=== PATIENT | male | born 1960 | race Caucasian/White ===

== ENCOUNTER 2019-09-23 07:21 | Outpatient (RCR) | payer OTHER, SELFPAY ==
--- NOTE | 2019-06-27 08:37 | P.PNWOUND_ITS ---
Wound Care Note Date/Time: 06/27/19 08:37 Wound approximation: No Wound width: 1.1cm Wound length: 1.4cm Wound depth: 0.3cm Drainage: scant serousanguinous Surrounding tissue appearance: mild erythema, mild swelling Tunneling: none Percentage granulation tissue: 75% new granulation tissue Treatment/Procedures: Debridement performed under sterile conditions with #15 blade knife, tolerated well. Dressings: Begin daily dressing changes with Santyl, Endoform and Mepilex foam. Cover dry. 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 Ulcer now with red/pink wound bed and tendon exposure. Debridement performed under sterile conditions with #15 blade knife, tolerated well. Surrounding tissue with mild erythema. No purulence. No signs of active infection. Recommended beginning daily dressing changes with Santyl, endoform, mepilex foam and cover dry. Follow up in 2 weeks for reassessment. Continue post op shoe with WBAT. Debridement/Burn/Wound Pre Procedure Consent was obtained, Procedures/risks were explained, Questions were answered, Correct patient identified and Correct side and site confirmed Episode Return Visit Area was prepped and draped using sterile technique?: Yes Ulcer/Wound Debridement, skin, first 20 sq cm or less: Yes Right Wound Location: little toe (lateral 5th ray ) Dressing Applied antibiotic ointment (silver gel ) Post Procedure Patient tolerated the procedure well?: Tolerated procedure well
--- NOTE | 2019-07-25 09:01 | WPDWOUNDNOTE ---
Wound Care Note Date/Time: 07/25/19 09:01 RIGHT 5th lateral DFU Assessment and Plan Assessment and plan (1) Diabetic foot ulcers: Onset Date: ~06/09/19 Qualifiers: Diabetic foot ulcer location: toe Diabetes mellitus type: type 2 Laterality: right Non-pressure ulcer stage: with fat layer exposed Qualified Code(s): E11.621 - Type 2 diabetes mellitus with foot ulcer; L97.512 - Non-pressure chronic ulcer of other part of right foot with fat layer exposed Code(s): E11.621 - Type 2 diabetes mellitus with foot ulcer; L97.509 - Non-pressure chronic ulcer of other part of unspecified foot with unspecified severity Status: Deleted Assessment and Plan: [facility] wound clinic evaluation for right 5th ray dorsal DFU. Ulcer with 100% red/pink wound bed. No purulence. No malodor. Surroudnign tissue without signs of active infection. Continue daily dressing changes with silver gel, endoform, mepilex foam and cover dry. Follow up in 2 weeks for reassessment. Continue post op shoe with WBAT. Exam Const Constitutional General: cooperative Nutritional Appearance: average body habitus Orientation/consciousness: oriented x3 Constitutional Limitations: no limitations HENMT Head: normal to inspection Ears: hearing grossly normal bilaterally General nose exam: external nose normal Face and sinus: normal facial exam Mouth: moist mucous membranes Teeth and gingiva: dentition normal Eyes General: appearance normal, both eyes and all related structures Pupils: Yes PERRL EOM: EOM intact bilaterally Neck Neck: Yes normal visual inspection Chest Chest palpation & inspection: normal inspection of the chest Resp Effort & Inspection: normal respiratory effort and able to speak in complete sentences Cardio Jugular venous distension: no JVD Neuro Cranial nerves: Yes PERRL Extrem Other: Ulcer on the lateral aspect of the RIGHT 5th ray measures 0.8x0.7x0.2cm, 100% red/pink wound bed. No signs of infection. No purulence. Right Hallux Amputation. Left foot without active ulcerations. Diabetic Foot Exam Inspection: Yes foot deformity Deformity: pes planus (b/l ) and deformed toes (hallux amputation RIGHT foot ) and Yes ulceration (right lateral 5th ray ulcer ) Peripheral pulse exam performed: Yes Pulses: L dorsalis pedis pulse: diminished, R dorsalis pedis pulse: diminished, L posterior tibial pulse: diminished and R posterior tibial pulse: diminished Monofilament Exam: L mid-heel: decreased, L mid-dorsum foot: decreased, R 1st metatarsals: absent (Amputation ) and R great toe: absent (Amputation ) Monofilament foot exam results: Left foot: abnormal and Right foot: abnormal Diabetic foot care education: provided Review of Systems Const Reports no additional constitutional complaints, Denies excessive sweating, Denies fever(s) and Denies weight gain Eyes Reports no additional eye complaints and Denies change in vision ENT Reports system reviewed and no additional complaints, except as documented and Reports hearing normal Card Denies chest pain, Denies diaphoresis, Denies leg ulcers and Denies dyspnea on exertion Resp Reports no additional respiratory complaints, Denies cough and Denies dyspnea on exertion GI Reports no additional gastrointestinal complaints, Denies abdominal pain, Denies constipation, Denies nausea and Denies vomiting Reports no additional male genitourinary complaints, Denies hematuria and Denies urinary frequency Musc Reports no additional musculoskeletal complaints and Reports as per HPI Neuro Reports Normal hearing present and Reports numbness Psych Denies anxiety and Denies depression Endo Reports no additional endocrine complaints, Denies excessive sweating, Denies polyphagia, Denies polydipsia and Denies polyuria
--- NOTE | 2019-08-08 08:55 | PCWOUND ---
Patient did not show up for appointment. No call was made to cancel. Tried to contact patient and phone number not in service.
--- NOTE | 2019-08-15 09:21 | WPDWOUNDNOTE ---
Wound Care Note Date/Time: 08/15/19 09:21 Right 5th Dorsal Ray Ulcer Wound approximation: No Wound width: 0.5cm Wound length: 0.6cm Wound depth: 0.1cm Drainage: scant serousanguinous Surrounding tissue appearance: no erythema, mild swelling Tunneling: none Percentage granulation tissue: 100% new granulation tissue Treatment/Procedures: NONE Dressings: Continue daily dressing changes with Silver gel, Endoform and Mepilex foam. Cover dry. Post Op shoe with WBAT. New soft tissue injuries on the dorsal aspect of the 2nd/4th ray measuring 0.2x0.2x0cm. Dry. No signs of infection. Assessment and Plan Assessment and plan (1) Diabetic foot ulcers: Onset Date: ~06/09/19 Qualifiers: Diabetic foot ulcer location: toe Diabetes mellitus type: type 2 Laterality: right Non-pressure ulcer stage: with fat layer exposed Qualified Code(s): E11.621 - Type 2 diabetes mellitus with foot ulcer; L97.512 - Non-pressure chronic ulcer of other part of right foot with fat layer exposed Code(s): E11.621 - Type 2 diabetes mellitus with foot ulcer; L97.509 - Non-pressure chronic ulcer of other part of unspecified foot with unspecified severity Status: Deleted Assessment and Plan: [facility] wound clinic evaluation for right 5th ray dorsal DFU. Ulcer with 100% red/pink wound bed. No purulence. No malodor. Surroudnign tissue without signs of active infection. Continue daily dressing changes with silver gel, endoform, mepilex foam and cover dry. Follow up in 2 weeks for reassessment. Continue post op shoe with WBAT. Exam Const Constitutional General: cooperative Nutritional Appearance: average body habitus Orientation/consciousness: oriented x3 Constitutional Limitations: no limitations [facility] Head: normal to inspection Ears: hearing grossly normal bilaterally General nose exam: external nose normal Face and sinus: normal facial exam Mouth: moist mucous membranes Teeth and gingiva: dentition normal Eyes General: appearance normal, both eyes and all related structures Pupils: Yes PERRL EOM: EOM intact bilaterally Neck Neck: Yes normal visual inspection Chest Chest palpation & inspection: normal inspection of the chest Resp Effort & Inspection: normal respiratory effort and able to speak in complete sentences Cardio Jugular venous distension: no JVD Neuro Cranial nerves: Yes PERRL Extrem Other: Ulcer on the lateral aspect of the RIGHT 5th ray measures 0.6x0.5x0.1 cm, 100% red/pink wound bed. No signs of infection. No purulence. 2nd/4th soft tissue injury- 0.2x0.2x0cm, dry. Right Hallux Amputation. Left foot without active ulcerations. Diabetic Foot Exam Inspection: Yes foot deformity and Yes ulceration (right lateral 5th ray ulcer ) Peripheral pulse exam performed: Yes Pulses: L dorsalis pedis pulse: diminished, R dorsalis pedis pulse: diminished, L posterior tibial pulse: diminished and R posterior tibial pulse: diminished Monofilament Exam: L mid-heel: decreased, L mid-dorsum foot: decreased, R 1st metatarsals: absent (Amputation ) and R great toe: absent (Amputation ) Monofilament foot exam results: Left foot: abnormal and Right foot: abnormal Diabetic foot care education: provided Review of Systems Const Reports no additional constitutional complaints, Denies excessive sweating, Denies fever(s) and Denies weight gain Eyes Reports no additional eye complaints and Denies change in vision ENT Reports system reviewed and no additional complaints, except as documented and Reports hearing normal Card Denies chest pain, Denies diaphoresis, Denies leg ulcers and Denies dyspnea on exertion Resp Reports no additional respiratory complaints, Denies cough and Denies dyspnea on exertion GI Reports no additional gastrointestinal complaints, Denies abdominal pain, Denies constipation, Denies nausea and Denies vomiting Reports no additional male genitourinary complaints, Denies hematuria and Denies urinary frequency Musc
--- NOTE | 2019-08-29 10:24 | WPDWOUNDNOTE ---
Wound Care Note Date/Time: 08/29/19 10:24 Right 5th Dorsal Ray Ulcer Wound approximation: No Wound width: 0.4cm Wound length: 0.5cm Wound depth: 0.2cm Drainage: scant serousanguinous Surrounding tissue appearance: no erythema, mild swelling Tunneling: none Percentage granulation tissue: 100% new granulation tissue Treatment/Procedures: NONE Dressings: Continue daily dressing changes with Silver gel, Endoform and Mepilex foam. Cover dry. Post Op shoe with WBAT. Soft tissue injuries on the dorsal aspect of the 2nd/4th ray healed. Dry. No signs of infection. Assessment and Plan Assessment and plan (1) Diabetic foot ulcers: Onset Date: ~06/09/19 Qualifiers: Diabetic foot ulcer location: toe Diabetes mellitus type: type 2 Laterality: right Non-pressure ulcer stage: with fat layer exposed Qualified Code(s): E11.621 - Type 2 diabetes mellitus with foot ulcer; L97.512 - Non-pressure chronic ulcer of other part of right foot with fat layer exposed Code(s): E11.621 - Type 2 diabetes mellitus with foot ulcer; L97.509 - Non-pressure chronic ulcer of other part of unspecified foot with unspecified severity Status: Deleted Assessment and Plan: [facility] wound clinic evaluation for right 5th ray dorsal DFU. Ulcer with 100% red/pink wound bed, surrounding callus requiring debridement under sterile conditions, tolerated well. No purulence. No malodor. Surrounding tissue without signs of active infection. Continue daily dressing changes with silver gel, endoform, mepilex foam and cover dry. Follow up in 2 weeks for reassessment. Reinforced need to use custom orthotics/depth shoes. Debridement/Burn/Wound Pre Procedure Consent was obtained, Procedures/risks were explained, Questions were answered, Correct patient identified and Correct side and site confirmed Episode Return Visit Area was prepped and draped using sterile technique?: Yes Ulcer/Wound Debridement, skin, first 20 sq cm or less: Yes Right Wound Location: little toe Dressing Applied sterile dressing Post Procedure Patient tolerated the procedure well?: Tolerated procedure well Exam Const Constitutional General: cooperative Nutritional Appearance: average body habitus Orientation/consciousness: oriented x3 Constitutional Limitations: no limitations HENMT Head: normal to inspection Ears: hearing grossly normal bilaterally General nose exam: external nose normal Face and sinus: normal facial exam Mouth: moist mucous membranes Teeth and gingiva: dentition normal Eyes General: appearance normal, both eyes and all related structures Pupils: Yes PERRL EOM: EOM intact bilaterally Neck Neck: Yes normal visual inspection Chest Chest palpation & inspection: normal inspection of the chest Resp Effort & Inspection: normal respiratory effort and able to speak in complete sentences Cardio Jugular venous distension: no JVD Neuro Cranial nerves: Yes PERRL Extrem Other: Ulcer on the lateral aspect of the RIGHT 5th ray measures 0.4x0.5x0.2cm, 100% red/pink wound bed. No signs of infection. No purulence. 2nd/4th soft tissue injury healed. Right Hallux Amputation. Left foot without active ulcerations. Diabetic Foot Exam Inspection: Yes foot deformity and Yes ulceration (right lateral 5th ray ulcer ) Peripheral pulse exam performed: Yes Pulses: L dorsalis pedis pulse: diminished, R dorsalis pedis pulse: diminished, L posterior tibial pulse: diminished and R posterior tibial pulse: diminished Monofilament Exam: L mid-heel: decreased, L mid-dorsum foot: decreased, R 1st metatarsals: absent (Amputation ) and R great toe: absent (Amputation ) Monofilament foot exam results: Left foot: abnormal and Right foot: abnormal Diabetic foot care education: provided Review of Systems Const Reports no additional constitutional complaints, Denies excessive sweating, Denies fever(s) and Denies weight gain Eyes Reports no additional eye complaints and Denies change in v
--- NOTE | 2019-09-12 08:40 | WPDWOUNDNOTE ---
Wound Care Note Date/Time: 09/12/19 08:40 Right 5th Dorsal Ray Ulcer Wound approximation: No Wound width: 0.2 cm Wound length: 0.4 cm Wound depth: 0.2cm Drainage: scant serousanguinous Surrounding tissue appearance: no erythema Tunneling: none Percentage granulation tissue: 100% new granulation tissue Treatment/Procedures: NONE Dressings: Continue daily dressing changes with mupirocin and Mepilex foam. Cover dry. Post Op shoe with WBAT. Assessment and Plan Assessment and plan (1) Diabetic foot ulcers: Onset Date: ~06/09/19 Qualifiers: Diabetic foot ulcer location: toe Diabetes mellitus type: type 2 Laterality: right Non-pressure ulcer stage: with fat layer exposed Qualified Code(s): E11.621 - Type 2 diabetes mellitus with foot ulcer; L97.512 - Non-pressure chronic ulcer of other part of right foot with fat layer exposed Code(s): E11.621 - Type 2 diabetes mellitus with foot ulcer; L97.509 - Non-pressure chronic ulcer of other part of unspecified foot with unspecified severity Status: Deleted Assessment and Plan: [facility] wound clinic evaluation for right 5th ray dorsal DFU. Ulcer with 100% red/pink wound bed. No purulence. No malodor. Surrounding tissue without signs of active infection. Continue daily dressing changes with mupirocin and mepilex foam. Follow up in 2 weeks for reassessment. Reinforced need to use custom orthotics/depth shoes, patient still noncompliant. Review of Systems Const Reports no additional constitutional complaints, Denies excessive sweating, Denies fever(s) and Denies weight gain Eyes Reports no additional eye complaints and Denies change in vision ENT Reports system reviewed and no additional complaints, except as documented and Reports Normal hearing present Card Denies chest pain, Denies diaphoresis, Denies leg ulcers and Denies dyspnea on exertion Resp Reports no additional respiratory complaints, Denies cough and Denies dyspnea on exertion GI Reports no additional gastrointestinal complaints, Denies abdominal pain, Denies constipation, Denies nausea and Denies vomiting Reports no additional male genitourinary complaints, Denies hematuria and Denies urinary frequency Musc Reports no additional musculoskeletal complaints and Reports as per HPI Neuro Reports Normal hearing present and Reports numbness Psych Denies anxiety and Denies depression Endo Reports no additional endocrine complaints, Denies excessive sweating, Denies polyphagia, Denies polydipsia and Denies polyuria Exam Const Constitutional General: cooperative Nutritional Appearance: average body habitus Orientation/consciousness: patient oriented x3 Constitutional Limitations: no limitations HENMN Head: normal to inspection Ears: hearing grossly normal bilaterally General nose exam: Normal external nose present Face and sinus: normal facial exam Mouth: moist mucous membranes Teeth and gingiva: dentition normal Eyes General: appearance normal, both eyes and all related structures Pupils: Yes Equal, round and reactive pupils present EOM: EOMs intact bilaterally Neck Neck: Yes normal visual inspection Chest Chest palpation & inspection: normal inspection of the chest Resp Effort & Inspection: normal respiratory effort and able to speak in complete sentences Cardio Jugular venous distension: no JVD Neuro Cranial nerves: Yes Equal, round and reactive pupils present Extrem Other: Ulcer on the lateral aspect of the RIGHT 5th ray measures 0.2x0.4x0.2cm, 100% red/pink wound bed. No signs of infection. No purulence. 2nd ray with callus, no signs of infection. Right Hallux Amputation. Left foot without active ulcerations. Diabetic Foot Exam Inspection: Yes foot deformity and Yes ulceration (right lateral 5th ray ulcer ) Peripheral pulse exam performed: Yes Pulses: Left dorsalis pedis peripheral pulse: diminished, Right dorsalis pedis peripheral pulse: diminished, L posterior tibial pulse: d
--- NOTE | 2019-09-23 08:28 | WPDWOUNDNOTE ---
Wound Care Note Date/Time: 09/23/19 08:28 Right 5th Dorsal Ray Ulcer Wound approximation: No Wound width: 0.6 cm Wound length: 0.7 cm Wound depth: 0.3 cm Drainage: scant serousanguinous Surrounding tissue appearance: no erythema Tunneling: none Percentage granulation tissue: 100% new granulation tissue Treatment/Procedures: NONE Dressings: Dressing with Medihoney Assessment and Plan Assessment and plan (1) Diabetic foot ulcers: Onset Date: ~06/09/19 Qualifiers: Diabetic foot ulcer location: toe Diabetes mellitus type: type 2 Laterality: right Non-pressure ulcer stage: with fat layer exposed Qualified Code(s): E11.621 - Type 2 diabetes mellitus with foot ulcer; L97.512 - Non-pressure chronic ulcer of other part of right foot with fat layer exposed Code(s): E11.621 - Type 2 diabetes mellitus with foot ulcer; L97.509 - Non-pressure chronic ulcer of other part of unspecified foot with unspecified severity Status: Deleted Assessment and Plan: [facility] wound clinic evaluation for right 5th ray dorsal DFU. Ulcer with large callus covering requiring debridement under sterile conditions with #15 blade knife, tolerated well. Underlying ulcer measures 0.6x0.7x0.3cm, 100% red/pink wound bed. No purulence. No malodor. Surrounding tissue without signs of active infection. Stalled improvement with Mupirocin. Transition now to Medihoney daily and cover with Mepilex Foam. Encouraged washing of foot daily with soap/water. Patient currently needs to have adjustments made to his custom orthotics/depth shoes. Reinforced need for use. Patient verbalized understanding of increased risks. Also encouraged patient to obtain PCP. He is awaiting a list from his [employer] as the previous MD he called did not accept his insurance. He is currently still a patient of Dr. Soliman. Follow up with Dr. Tabor on 10/17. Reviewed signs/symptoms of worsening infection to report to ED immediately, verbalized understanding. Review of Systems Const Reports no additional constitutional complaints, Denies excessive sweating, Denies fever(s) and Denies weight gain Eyes Reports no additional eye complaints and Denies change in vision ENT Reports system reviewed and no additional complaints, except as documented and Reports Normal hearing present Card Denies chest pain, Denies diaphoresis, Denies leg ulcers and Denies dyspnea on exertion Resp Reports no additional respiratory complaints, Denies cough and Denies dyspnea on exertion GI Reports no additional gastrointestinal complaints, Denies abdominal pain, Denies constipation, Denies nausea and Denies vomiting Reports no additional male genitourinary complaints, Denies hematuria and Denies urinary frequency Musc Reports no additional musculoskeletal complaints and Reports as per HPI Neuro Reports Normal hearing present and Reports numbness Psych Denies anxiety and Denies depression Endo Reports no additional endocrine complaints, Denies excessive sweating, Denies polyphagia, Denies polydipsia and Denies polyuria Exam Const Constitutional General: cooperative Nutritional Appearance: average body habitus Orientation/consciousness: patient oriented x3 Constitutional Limitations: no limitations HENMT Head: normal to inspection Ears: hearing grossly normal bilaterally General nose exam: Normal external nose present Face and sinus: normal facial exam Mouth: moist mucous membranes Teeth and gingiva: dentition normal Eyes General: appearance normal, both eyes and all related structures Pupils: Yes Equal, round and reactive pupils present EOM: EOMs intact bilaterally Neck Neck: Yes normal visual inspection Chest Chest palpation & inspection: normal inspection of the chest Resp Effort & Inspection: normal respiratory effort and able to speak in complete sentences Cardio Jugular venous distension: no JVD Neuro Cranial nerves: Yes Equal, round and reactive pupils present Extrem Other
== END 2019-09-25 23:59 | disposition home or self-care (01) ==
LOC: ANHWOC 07:21
PROVIDERS: PCP Emergency Medicine; Visit Provider Nurse Practitioner Family
DX: E11.621 Type 2 diabetes mellitus with foot ulcer (principal); E11.21 Type 2 diabetes mellitus with diabetic nephropathy; L97.529 Non-pressure chronic ulcer of other part of left foot with unspecified severity
CPT/HCPCS: 11043; 97602; 99212; 99213; A9270; G0463

== ENCOUNTER 2019-10-28 07:18 | Outpatient (RCR) | payer OTHER, SELFPAY ==
--- NOTE | 2019-10-17 12:10 | PM.IMHP ---
H&P: HPI History of Present Illness Chief complaint: left foot ulcer Narrative: Ten Barroso is a 59 year old male with diabetes and severe lower extremity peripheral neuropathy. Presents to the [facility] wound clinic for follow-up of right foot ulceration. Patient states ulcer improving. He keeps it covered with a foam pad. He complains of deformity of the 4th the 5th toe of the right foot. This causes pressure on the dorsum and ulcerative condition. He has had previous tendon release of the 2nd and 3rd toes with good Result. Denies pain secondary to neuropathy. Review of Systems Constitutional: Constitutional: Reports weakness Eyes: Eyes: Denies blurry vision ENT: Reports Normal hearing present Cardiovascular: Cardiovascular: Reports diaphoresis, Denies leg edema, Denies lightheadedness and Denies palpitations Respiratory: Respiratory: Reports dyspnea on exertion and Denies wheezing Gastrointestinal: Gastrointestinal: Denies abdominal pain Musculoskeletal: Musculoskeletal: Reports as per HPI Integumentary/Breasts: Skin/Breast: Denies changing lesions and Denies sores Neurologic: Reports as per HPI and Denies headache(s) Psychiatric: Psychiatric: Denies behavioral changes, Denies confusion and Denies hallucinations Endocrine: Endocrine: Denies heat intolerance Hematologic/Lymphatic: Hematologic/Lymphatic: Denies easy bleeding Allergic/Immunologic: Allergic/Immunologic: Denies wheezing PMFSH Past Medical History Medical History Benign prostatic hyperplasia Coronary artery disease History of [place] and stent in 2016. Depression History of anemia History of kidney stones History of MRSA infection History of rectal polyps Benign. History of shingles Insulin dependent diabetes mellitus The with peripheral neuropathy. Hemoglobin A1c was 8.9 in January 2019. Osteoarthritis Paroxysmal atrial fibrillation Tobacco dependence Surgical History Surgical History History of cardiac catheterization With stent x1 in 2016. History of transurethral resection of prostate Status post amputation of right great toe Status post ORIF of fracture of ankle Right ankle. Family History Family History Mother Lymphoma Father Kidney disease Other Cancer Diabetes mellitus Family history of cardiovascular disease Social History Social History Social History: Mr. Barroso lives in [place]. 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 He moved to the area June 2018 from [place]. He smokes 1 pack of cigarettes per day and has since his teenage years. He admits to marijuana use. He drinks alcohol socially and in moderation. His primary care providers Dr. Harsh Soliman. He designates his sister, Dinora Rueda, as his surrogate decision maker and he wishes to be a DNR. Smoking packs per day: 1 Smoking cigarettes per day: 20.0 Years smoked: 45 Smoking pack-years: 45.00 Smoking status: Current every day smoker Tobacco type: cigarettes Alcohol intake: never Substance use: current Substance use type: marijuana Spiritual care concerns: No Agree to blood products: Yes Meds Home Medications and Allergies Home Medications Medication Instructions Recorded Confirmed Type Basaglar KwikPen U-100 Insulin 8 unit SUBCUT DAILY 06/17/19 07/21/19 History Basaglar KwikPen U-100 Insulin 18 unit SUBCUT HS 06/17/19 07/21/19 History amiodarone 200 mg PO DAILY 06/17/19 07/21/19 History aspirin [Adult Low Dose Aspirin] 81 mg PO DAILY 06/17/19 07/21/19 History cyanocobalamin (vitamin B-12) 1,000 mcg PO DAILY 06/17/19 07/21/19 History insulin lispro [Humalog U-100 8 unit SUBCUT TIDWM 06/17/19 07/21/19 History Insulin] trazodone 150
--- NOTE | 2019-10-28 09:46 | P.OP_ITS ---
Procedure Note - Detailed Date of procedure: 10/28/19 Pre-op diagnosis: left foot ulcer Right 2nd, 4th, 5th hammertoe deformity Post-op diagnosis: same Procedure performed: Percutaneous flexor tenotomy of the right 2nd, 4th, 5th toes Description of procedure: Indications: Patient is a 59-year-old gentleman followed in the [facility] wound clinic for right diabetic foot ulcers. Has healed his ulcers. He now has persistent severe flexion hammertoe deformity of the 2nd, 4th, 5th toes of the right foot. Due to the persistent flexion there is pressure and impingement on the plantar foot skin with risk of u lceration. He presents for release of hammertoes. What was done: Patient identified in the preoperative holding. Informed consent given. Operative extremity marked. Patient positioned in semi rec umbent seating position in treatment room. Time-out performed confirming the patient, site of the surgery and the plan. Right foot sterilized with alcohol prep solution. Local anesthetic with 0.5% Marcaine plain. Fifteen blade knife used to perform a percutaneous release of the flexor tendon plantar to the proximal phalanx of the 2nd toe, wound irrigated and closed with 4 0 nylon interrupted suture. Fifteen blade knife used to perform a percutaneous release of the flexor tendon plantar to the proximal phalanx of the 4th toe, wound irrigated and closed with 4 0 nylon interrupted suture. Fifteen blade knife used to perform a percutaneous release of the flexor tendon plantar the proximal phalanx of the 5th toe, wound irrigated closed with 4 nylon interrupted suture. Sterile bandage placed. Good capillary refill noted in all the toes. Patient tolerated without incident. He was discharged home in stable condition with a fracture boot in place. Home dressing changes and antibiotic ointment instructions reviewed. Patient follow-up in 2 weeks for suture removal. Implants: None Anesthesia: local (0.5% Marcaine) Surgeon: Yoel Tabor MD Fundraising Specialist: Yen Medel Estimated blood loss (mL): 2 Drains: No Packing: No Pathology: none sent Complications: None Condition: stable Disposition: other (home. Follow up in 2 weeks for suture removal.)
== END 2020-01-05 07:37 | disposition home or self-care (01) ==
LOC: ANHWOC 07:18
PROVIDERS: Visit Provider Orthopaedic Surgery
DX: E11.621 Type 2 diabetes mellitus with foot ulcer (principal); L97.519 Non-pressure chronic ulcer of other part of right foot with unspecified severity
CPT/HCPCS: 99212; 99213; G0463

== ENCOUNTER 2020-01-07 07:33 | Outpatient (CLI) | payer OTHER, SELFPAY ==
--- NOTE | ~2020-01-07 | US_ITS ---
EXAMINATION: US abdomen complete DATE: 01/07/2020 09:27 INDICATION: Nausea. Weight loss. Right lower quadrant abdominal pain. TECHNIQUE: Multiple grayscale and Doppler ultrasound images of the abdomen were obtained. COMPARISON: Abdomen ultrasound 04/06/2019 FINDINGS: The visualized portions of the head and body of the pancreas are normal. The liver is pietro l without focal lesion. There is normal flow in main portal vein. Abdominal aorta is normal in calibe r. Inferior vena cava is normal. The gallbladder is normal in size. No gallstones or gallbladder wall thickening. There are comet-tail artifacts at the gallbladder wall, consistent with adenomyomatosis. There was no sonographic Clark sign. The common duct is dilated to 8 mm. The kidneys are normal in size. There is a 9 mm cyst in left kidney. The spleen is normal in size. IMPRESSION: 1. Stable mild dilatation of the common duct. Reviewed, dictated and finalized at location E.
[2020-01-07 08:58] LABS: Hematocrit 44.4 % (42.0-52.0); Hemoglobin 14.6 g/dL (14.0-18.0); Mean Corpuscular HGB Conc 32.9 g/dl (32-36); Mean Corpuscular Hemoglobin 29.6 pg (26-34); Mean Corpuscular Volume 89.9 fl (80-100); Mean Platelet Volume 9.3 fl (7.4-10.4); Platelet Count Result 372 k/mm3 (150-375); Red Blood Count 4.94 M/mm3 (4.6-6.20); Red Cell Distribution Width 13.5 % (11.5-14.5)
[2020-01-07 09:07] LABS: Alanine Aminotransferase 31 U/L (4-50); Albumin Level 4.1 g/dL (3.5-5.1); Alkaline Phosphatase 135 U/L (38-126); Amylase 68 U/L (30-110); Aspartate Amino Transferase 28 U/L (17-59); Bilirubin,Total 0.1 mg/dL (0.2-1.3); Blood Urea Nitrogen 17 mg/dL (9-20); Calcium 9.4 mg/dL (8.4-10.2); Carbon Dioxide 32 mmol/L (22-30); Chloride 100 mmol/L (98-107); Estimated Glomerular Filt Rate > 60; Glucose 324 mg/dL (75-110); Lipase 43 U/L (23-300); Potassium 4.3 mmol/L (3.4-5.0); Sodium 136 mmol/L (137-145)
[2020-01-07 09:14] LABS: Transferrin 250 mg/dL (206-381)
[2020-01-07 09:30] LABS: Iron 84 ug/dL (49-181)
[2020-01-07 09:39] LABS: Percent Iron Saturation 26 % (20-50)
[2020-01-07 09:48] LABS: Free T4 Free Thyroxine 1.08 ng/mL (0.78-2.19)
== END 2020-01-07 07:34 | disposition home or self-care (01) ==
PROVIDERS: Visit Provider Internal Medicine Gastroenterology
DX: R63.4 Abnormal weight loss (principal); R11.0 Nausea; R19.4 Change in bowel habit
CPT/HCPCS: 36415; 76700; 80053; 82150; 82728; 83540; 83550; 83690; 84439; 84443; 84466; 85027

== ENCOUNTER 2020-01-15 09:42 | Outpatient (CLI) | payer OTHER, SELFPAY ==
[2020-01-15 10:51] LABS: Cholesterol 187 mg/dL (0-200); HDL Direct 43 mg/dL; Triglycerides 227 mg/dL (<150)
[2020-01-15 11:02] LABS: LDL Cholesterol Direct 95 mg/dL
== END 2020-01-15 09:43 | disposition home or self-care (01) ==
LOC: ANHLAB 09:43
PROVIDERS: Visit Provider Internal Medicine Cardiovascular Disease
DX: E78.5 Hyperlipidemia, unspecified (principal)
CPT/HCPCS: 36415; 80061

== ENCOUNTER 2020-02-09 13:49 | Emergency (ER) | payer OTHER, SELFPAY ==
--- NOTE | ~2020-02-09 | XR_ITS ---
EXAMINATION: XR toe 5th RT min 2V INDICATION: Redness, pain and swelling of the fifth toe TECHNIQUE: Four views of the right fifth toe are obtained. COMPARISON: 11/11/2019 FINDINGS: There are erosive changes at the lateral/distal aspect of the fifth proximal phalanx as wel l as at the proximal/lateral aspect of the fifth middle phalanx. Soft tissue swelling surrounds the a reas of erosion. There is osteopenia and tapering involving the distal aspect of the fifth proximal p halanx. Some osseous destruction is seen at the plantar base of the fifth middle phalanx with possibl e fracture. The remaining osseous structures are osteopenic but without definite acute osseous abnorm ality. IMPRESSION: 1. Findings concerning for osteomyelitis involving the proximal and middle phalanges of the fifth toe . Reviewed, dictated and finalized at location A. IMPRESSION: 1. Findings concerning for osteomyelitis involving the proximal and middle phal anges of the fifth toe.
[2020-02-09 13:59] VITALS: BP 147/80; PULSE 97; RESP 18; TEMP 36.7; O2SAT 97
--- NOTE | 2020-02-09 14:53 | ED.GENADULT ---
HPI - General Adult General Chief complaint: Wound/Laceration Stated complaint: TOE INFECTION Time Seen by Provider: 02/09/20 14:45 History of Present Illness HPI narrative: 59-year-old male patient presents to the emergency department with complaints of fifth toe wound. Patient states wound has been on his fifth toe for about 3 weeks now. Patient states he had some leftover mupirocin at home that he has been putting on it but for the past 2 days he noticed that the redness around it has been getting a little bit bigger and he wanted to come and get it checked out. Patient states he has had multiple infections to the toes before and has had his right first toe amputated due to infection. Patient does have history of diabetes as well as neuropathy. Denies any pain to the iliac area. Patient states he has been trying to keep an eye on it. Patient denies any fevers, body aches or chills. Related Data Home Medications Medication Instructions Recorded Confirmed Basaglar KwikPen U-100 Insulin 18 unit SUBCUT HS 06/17/19 01/15/20 amiodarone 200 mg PO DAILY 06/17/19 01/15/20 aspirin [Adult Low Dose Aspirin] 81 mg PO DAILY 06/17/19 01/15/20 cyanocobalamin (vitamin B-12) 1,000 mcg PO DAILY 06/17/19 01/15/20 insulin lispro [Humalog U-100 8 unit SUBCUT TIDWM 06/17/19 01/15/20 Insulin] trazodone 150 mg PO HS 06/17/19 01/15/20 ergocalciferol (vitamin D2) 50,000 unit PO WEEKLY 07/21/19 01/15/20 [Vitamin D2] ropinirole 0.25 mg PO BID 07/21/19 01/15/20 rosuvastatin 20 mg PO DAILY 07/21/19 01/15/20 venlafaxine 75 mg PO BID 07/21/19 01/15/20 clonazepam 0.5 mg tablet 0.5 mg PO DAILY 01/15/20 01/15/20 mirtazapine 15 mg tablet 15 mg PO DAILY 01/15/20 01/15/20 omega 4-xiw-rhn-fish oil 1,000 mg 1 cap PO BID 01/15/20 (120 mg-180 mg) capsule omeprazole 20 mg capsule,delayed 20 mg PO DAILY 01/15/20 01/15/20 release Allergies Allergy/AdvReac Type Severity Reaction Status Date / Time salmon oil Allergy Intermediate Swelling Verified 02/09/20 14:07 lisinopril Allergy Unknown lowers BP Verified 02/09/20 14:07 too much meperidine Allergy Unknown Unknown Verified 02/09/20 14:07 MIX IV'S IN NS Allergy Unknown . Uncoded 01/15/20 09:09 Review of Systems Review of Systems: Narrative: CONSTITUTIONAL: Denies fever, chills, or sweats. EYES: Denies visual changes, redness, or discharge. ENT: Denies rhinorrhea, congestion, sore throat, or otalgia. CARDIOVASCULAR: Denies chest pain, palpitations, or edema. RESPIRATORY: Denies cough or dyspnea. GASTROINTESTINAL: Denies abdominal pain, nausea, vomiting, or diarrhea. GENITOURINARY: Denies dysuria or hematuria. SKIN: Denies rash or itching. MUSCULOSKELETAL: Denies back pain, joint pain, or myalgia. Positive for toe wound x3 weeks NEUROLOGIC: Denies headache, numbness, or weakness. PSYCHIATRIC: Denies anxiety or depression. [facility] Past Medical History Medical History Aftercare following surgery of the musculoskeletal system Benign prostatic hyperplasia Coronary artery disease History of [place] and stent in 2016. Depression Hammertoe of right foot History of anemia History of kidney stones History of MRSA infection History of rectal polyps Benign. History of shingles Insulin dependent diabetes mellitus The with peripheral neuropathy. Hemoglobin A1c was 8.9 in January 2019. Osteoarthritis Paroxysmal atrial fibrillation Peripheral sensory neuropathy due to type 2 diabetes mellitus Tobacco dependence Surgical History Surgical History History of cardiac catheterization With stent x1 in 2016. History of transurethral resection of prostate Status post amputation of right great toe Status post ORIF of fracture of ankle Right ankle. Family History Family History Mother Lymphoma Father Kidney disease Other Cancer Diabetes melli
[2020-02-09 16:20] LABS: Glucose Point of Care 200 (65-105)
[2020-02-09 16:47] LABS: Basophils Absolute Auto 0.1 K/mm3 (0.0-0.1); Basophils Percent Auto 0.7 % (0.2-1.2); Eosinophils Absolute Auto 0.3 K/mm3 (0-0.3); Eosinophils Percent Auto 3.5 % (0-4.4); Hematocrit 46.1 % (42.0-52.0); Hemoglobin 15.3 g/dL (14.0-18.0); Immature Granulocyte Absolute 0.04 K/mm3 (0.00-0.031); Immature Granulocyte Percent A 0.4 % (0-0.5); Lymphocytes Absolute Auto 1.97 K/mm3 (0.9-3.2); Mean Corpuscular HGB Conc 33.2 g/dl (32-36); Mean Corpuscular Hemoglobin 29.7 pg (26-34); Mean Corpuscular Volume 89.3 fl (80-100); Mean Platelet Volume 9.1 fl (7.4-10.4); Monocytes Absolute Auto 0.9 K/mm3 (0.1-0.6); Neutrophils Absolute Auto 5.7 K/mm3 (1.3-6.7); Neutrophils Percent Auto 63.4 % (45.5-73.1); Platelet Count Result 332 k/mm3 (150-375); Red Blood Count 5.16 M/mm3 (4.6-6.20); Red Cell Distribution Width 13.8 % (11.5-14.5)
[2020-02-09 16:52] VITALS: BP 121/70; PULSE 75; RESP 18; O2SAT 97
[2020-02-09 17:01] LABS: Lactic Acid Reflex 1.1 mmol/L (0.7-2.1)
[2020-02-09 17:07] LABS: Prothrombin Time 12.4 Seconds (11.1-14.7)
[2020-02-09 17:08] LABS: Partial Thromboplastin Time 25.4 SECONDS (22.3-36.8)
[2020-02-09 17:36] LABS: CRP < 0.5 mg/dL (<1.0)
[2020-02-09 17:45] LABS: Alanine Aminotransferase 18 U/L (4-50); Albumin Level 3.8 g/dL (3.5-5.1); Alkaline Phosphatase 79 U/L (38-126); Aspartate Amino Transferase 20 U/L (17-59); Bilirubin,Total 0.2 mg/dL (0.2-1.3); Blood Urea Nitrogen 20 mg/dL (9-20); Calcium 9.3 mg/dL (8.4-10.2); Carbon Dioxide 30 mmol/L (22-30); Chloride 103 mmol/L (98-107); Estimated CRCL calculation 61 ml/min; Estimated Glomerular Filt Rate > 60; Glucose 194 mg/dL (75-110); Sodium 136 mmol/L (137-145)
[2020-02-09 18:11] VITALS: BP 134/84; PULSE 81; RESP 16; O2SAT 98
[2020-02-09 19:08] VITALS: BP 120/80; PULSE 80; RESP 20; TEMP 36.7; O2SAT 99
== END 2020-02-09 19:09 | disposition home or self-care (01) ==
PROVIDERS: Emergency Provider Nurse Practitioner Family; PCP Physician Assistant
DX: E11.69 Type 2 diabetes mellitus with other specified complication (principal); M86.9 Osteomyelitis, unspecified; Z79.4 Long term (current) use of insulin; I25.10 Atherosclerotic heart disease of native coronary artery without angina pectoris; I25.2 Old myocardial infarction; Z95.5 Presence of coronary angioplasty implant and graft; Z87.442 Personal history of urinary calculi; Z86.14 Personal history of Methicillin resistant Staphylococcus aureus infection; M19.90 Unspecified osteoarthritis, unspecified site; I48.0 Paroxysmal atrial fibrillation; Z79.82 Long term (current) use of aspirin; E11.42 Type 2 diabetes mellitus with diabetic polyneuropathy; Z89.411 Acquired absence of right great toe; F17.210 Nicotine dependence, cigarettes, uncomplicated; N40.0 Benign prostatic hyperplasia without lower urinary tract symptoms; F32.9 Major depressive disorder, single episode, unspecified; Z66 Do not resuscitate; R03.0 Elevated blood-pressure reading, without diagnosis of hypertension
CPT/HCPCS: 36415; 73660; 80053; 82948; 83605; 85025; 85610; 85730; 86140; 87040; 96365; 99284; J0692

== ENCOUNTER 2020-02-18 11:49 | Outpatient (CLI) | payer OTHER, SELFPAY ==
--- NOTE | 2020-02-18 15:18 | WPDPFTINT ---
PFT Interpretation PFT Interpretation: DOS: 02/18/2020 REQUESTING: Dr Justo Evans REASON FOR TESTING: Airway resistance PULMONARY FUNCTION TESTS Results are reliable and reproducible. Spirometry: FEV1 is 97%, normal, 3.38 L. FVC is 91%, also normal. Normal FEV1%. No bronchodilator was given. Lung volumes: TLC 115%, normal. RV increased 140% consistent with moderate air trapping. Normal airway resistance Diffusion: DLCO 84%, normal. Flow volume loop: Expiratory loop has a blunter peak. IMPRESSION: Normal spirometry, no bronchodilator given, moderate air trapping which is consistent with an obstructive process. Normal diffusion. Suzy Medina MD
== END 2020-02-18 11:50 | disposition home or self-care (01) ==
PROVIDERS: PCP Physician Assistant; Visit Provider Internal Medicine Cardiovascular Disease
DX: R06.00 Dyspnea, unspecified (principal)
CPT/HCPCS: 94375; 94726; 94729

== ENCOUNTER 2020-02-20 12:11 | Observation (INO) | payer OTHER, SELFPAY ==
[2020-02-20] VITALS (46 sets, daily range): BP systolic 93–138; BP diastolic 48–97; PULSE 60–155; RESP 8–29; TEMP 36.5–37.1; O2SAT 98–100; BMI 19.1
[2020-02-20 12:35] LABS: Glucose Point of Care 226 (65-105)
[2020-02-20 12:55] LABS: Basophils Absolute Auto 0.1 K/mm3 (0.0-0.1); Basophils Percent Auto 0.3 % (0.2-1.2); Eosinophils Percent Auto 0.1 % (0-4.4); Hematocrit 48.5 % (42.0-52.0); Hemoglobin 16.3 g/dL (14.0-18.0); Immature Granulocyte Absolute 0.14 K/mm3 (0.00-0.031); Immature Granulocyte Percent A 0.8 % (0-0.5); Lymphocytes Absolute Auto 2.06 K/mm3 (0.9-3.2); Lymphocytes Percent Auto 12.1 % (18.3-44.2); Mean Corpuscular HGB Conc 33.6 g/dl (32-36); Mean Corpuscular Hemoglobin 29.5 pg (26-34); Mean Corpuscular Volume 87.7 fl (80-100); Mean Platelet Volume 9.5 fl (7.4-10.4); Monocytes Absolute Auto 1.4 K/mm3 (0.1-0.6); Monocytes Percent Auto 8.1 % (2.6-8.5); Neutrophils Absolute Auto 13.4 K/mm3 (1.3-6.7); Neutrophils Percent Auto 78.6 % (45.5-73.1); Platelet Count Result 399 k/mm3 (150-375); Red Blood Count 5.53 M/mm3 (4.6-6.20); Red Cell Distribution Width 13.8 % (11.5-14.5)
--- NOTE | 2020-02-20 13:05 | ED.NAVMDI ---
HPI - Nausea/Vomiting/Diarrhea General Chief complaint: Nausea/Vomiting/Diarrhea Stated complaint: dizzy, vomiting Time Seen by Provider: 02/20/20 13:02 History of Present Illness HPI Narrative: Nausea and vomiting for the past few days. Associated with dizziness on standing or head movement. He has noticed fullness in the left ear. He has not been able to tolerate anything PO. Today feeling very weak. Started on bactrim for osteomyelitis 10 days ago. Not able to take medications. Related Data Home Medications Medication Instructions Recorded Confirmed Basaglar KwikPen U-100 Insulin 30 unit SUBCUT BID 06/17/19 01/15/20 amiodarone 200 mg PO DAILY 06/17/19 01/15/20 aspirin [Adult Low Dose Aspirin] 81 mg PO DAILY 06/17/19 01/15/20 cyanocobalamin (vitamin B-12) 1,000 mcg PO DAILY 06/17/19 01/15/20 insulin lispro [Humalog U-100 unit SUBCUT TIDWM 06/17/19 01/15/20 Insulin] trazodone 150 mg PO HS 06/17/19 01/15/20 ergocalciferol (vitamin D2) 50,000 unit PO WEEKLY 07/21/19 01/15/20 [Vitamin D2] ropinirole 0.25 mg PO BID 07/21/19 01/15/20 rosuvastatin 20 mg PO DAILY 07/21/19 01/15/20 venlafaxine 75 mg PO BID 07/21/19 01/15/20 clonazepam 0.5 mg tablet 0.5 mg PO DAILY 01/15/20 01/15/20 mirtazapine 15 mg tablet 15 mg PO DAILY 01/15/20 01/15/20 omega 7-tuu-auq-fish oil 1,000 mg 1 cap PO BID 01/15/20 (120 mg-180 mg) capsule omeprazole 20 mg capsule,delayed 20 mg PO DAILY 01/15/20 01/15/20 release Allergies Allergy/AdvReac Type Severity Reaction Status Date / Time salmon oil Allergy Intermediate Swelling Verified 02/20/20 12:25 lisinopril Allergy Unknown lowers BP Verified 02/20/20 12:25 too much meperidine Allergy Unknown Unknown Verified 02/20/20 12:25 MIX IV'S IN NS Allergy Unknown . Uncoded 01/15/20 09:09 Review of Systems Review of Systems: All systems reviewed & are unremarkable except as noted in HPI and below Constitutional: Constitutional: Denies fever(s) and Reports weakness Cardiovascular: Cardiovascular: Denies chest pain Respiratory: Respiratory: Denies dyspnea Gastrointestinal: Gastrointestinal: Denies constipation, Denies diarrhea, Reports nausea and Reports vomiting Genitourinary: Genitourinary: Denies hematuria and Denies dysuria Neurologic: Reports vertigo and Reports weakness [facility] Past Medical History Medical History Aftercare following surgery of the musculoskeletal system Benign prostatic hyperplasia Coronary artery disease History of [place] and stent in 2016. Depression Hammertoe of right foot History of anemia History of kidney stones History of MRSA infection History of rectal polyps Benign. History of shingles Insulin dependent diabetes mellitus The with peripheral neuropathy. Hemoglobin A1c was 8.9 in January 2019. Osteoarthritis Osteomyelitis of toe of right foot Paroxysmal atrial fibrillation Peripheral sensory neuropathy due to type 2 diabetes mellitus Tobacco dependence Surgical History Surgical History History of cardiac catheterization With stent x1 in 2016. History of transurethral resection of prostate Status post amputation of right great toe Status post ORIF of fracture of ankle Right ankle. Family History Family History Mother Lymphoma Father Kidney disease Other Cancer Diabetes mellitus Family history of cardiovascular disease Social History Social History Social History: Mr. Barroso lives in [place]. 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 He moved to the area June 2018 from [place]. He smokes 1 pack of cigarettes per day and has since his teenage years. He admits to marijuana use. He drinks alcohol socially and in moderation. His primary care providers Dr. House
[2020-02-20] MEDS: SODIUM CHLORIDE 0.9% IV 1,000 ML 999 ML IV CONT ×2 (13:27→14:50)
[2020-02-20] MEDS: dilTIAZem HCl INJ 25 MG/5 ML VIAL 10 MG IV PUSH ×2 (13:27→17:44)
[2020-02-20 13:38] LABS: Alanine Aminotransferase 38 U/L (4-50); Albumin Level 4.5 g/dL (3.5-5.1); Alkaline Phosphatase 120 U/L (38-126); Aspartate Amino Transferase 28 U/L (17-59); Bilirubin,Total 0.3 mg/dL (0.2-1.3); Blood Urea Nitrogen 33 mg/dL (9-20); Calcium 10.4 mg/dL (8.4-10.2); Carbon Dioxide 22 mmol/L (22-30); Chloride 102 mmol/L (98-107); Estimated CRCL calculation 51 ml/min; Estimated Glomerular Filt Rate > 60; Glucose 252 mg/dL (75-110); Lipase 49 U/L (23-300); Potassium 4.9 mmol/L (3.4-5.0); Sodium 138 mmol/L (137-145)
[2020-02-20 16:44] LABS: Add Urine Microscopic? YES; Appearance Urine Clear (Clear); Bacteria Urine Trace /hpf; Bilirubin Urine Negative (Negative); Blood Urine 1+ (Negative); Color Urine Yellow (Yellow); Glucose Urine UA 3+ mg/dL (Negative); Ketones Urine 1+ mg/dL (Negative); Leukocyte Esterase Ur Negative LEU/UL (Negative); Mucus Urine Rare /lpf; Nitrate Urine Negative (Negative); Protein Urine 3+ mg/dL (Negative); RBC Urine 0-2 /hpf (0-2); Specific Grav Ur 1.026 (1.001-1.035); Urobilinogen Urine Negative mg/dL (<2.0); WBC Urine 0-3 /hpf
[2020-02-20] MEDS: AMIODARONE HCL 200 MG TABLET PO (17:44)
--- NOTE | 2020-02-20 19:53 | ADMGEN ---
This patient, Ten Barroso, was admitted to IMU Room 202-. Patient/family oriented to hospital policies and general routines including ID bracelet, bed and alarms, visiting hours, pain management, procedures, bathroom and other care routines, personal items, smoking policy, room service/diet, and visiting hours. Valuables list has been completed. Information on how to activate the Rapid Response Team has been discussed. Patient/Family are encouraged to report perceived risks to care and to ask questions if they do not understand what they are told or what they should do.
[2020-02-20] MEDS: LACTATED RINGERS 1,000 ML 125 ML IV CONT (20:20)
[2020-02-20 21:05] LABS: Glucose Point of Care 147 (65-105)
--- NOTE | 2020-02-20 21:45 | PM.IMHP ---
H&P: HPI History of Present Illness Chief complaint: Nausea and vomiting, dehydration, a-fib w/RVR Narrative: Ten Barroso is a 59 year old male who is well-known to me. The patient has a history of osteomyelitis and history of AFib which is chronic. The patient stated that he was seen on 02/09/2020 in the emergency room for an infection of his small toe on the right foot. The patient stated that he had an injury when she he let the dog out. He has peripheral neuropathy severely did not feel his toe when he got a wound on it. The patient stated that the wound started about 3 weeks prior to that event in the emergency room. The patient had some leftover mupirocin and was using that felt like it was doing fine for while but then office then it became more red and he is diabetic so he thought that he come to the emergency room at that time. The patient was started on Bactrim at that time. The patient was wearing of fracture shoe and was tolerating it well. He did have a follow-up in the Wound approximately 1 week after he was on Bactrim. Function test on 02/18/2020 and stated that he passed it and does not have COPD. The patient came to the emergency room today with nausea vomiting and diarrhea. He feels like this was associated with the Bactrim. He also had some dizziness and lightheadedness due to the dehydration. Patient was not able to finish his Bactrim due to the nausea and vomiting diarrhea. His white count was noted to be 17. Patient was noted to be in AFib with RVR it was felt that he was not able to keep his amiodarone orally down at home. Due to the vomiting. Patient was started on IV fluids he was given IV Valium and IV fluids in the emergency room he was given IV Cardizem push x1 in oral amiodarone. However the patient's heart rate still remained above 130. The patient was admitted to IMU for osteomyelitis of right foot in AFib with RVR. Dehydration acute renal failure and dizziness. Date of service 02/20/2020 Review of Systems Review of Systems: All systems reviewed & are unremarkable except as noted in HPI and below Constitutional: Constitutional: Reports as per HPI and Reports no additional constitutional complaints Eyes: Eyes: Reports as per HPI and Reports no additional eye complaints ENT: Reports system reviewed and no additional complaints, except as documented and Reports Normal hearing present Cardiovascular: Cardiovascular: Reports no additional cardiovascular complaints Respiratory: Respiratory: Reports no additional respiratory complaints and Reports no additional respiratory complaints Gastrointestinal: Gastrointestinal: Reports as per HPI and Reports no additional gastrointestinal complaints Musculoskeletal: Musculoskeletal: Reports no additional musculoskeletal complaints Integumentary/Breasts: Skin/Breast: Reports system reviewed and no additional complaints, except as docu and Reports as per HPI Neurologic: Reports system reviewed and no additional complaints, except as documented, Reports as per HPI and Reports Normal hearing present Psychiatric: Psychiatric: Reports no additional psychiatric complaints and Reports as per HPI Endocrine: Endocrine: Reports no additional endocrine complaints Hematologic/Lymphatic: Hematologic/Lymphatic: Reports no additional hematologic/lymphatic complaints Allergic/Immunologic: Allergic/Immunologic: Reports no additional allergic/immunologic complaints [facility] Past Medical History Medical History (Updated 02/20/20 @ 22:03 by Maggy Garcia NP) Aftercare following surgery of the musculoskeletal system Benign prostatic hyperplasia Coronary artery disease History of [place] and stent in 2016. Depression Hammertoe of right foot History of anemia History of kidney stones History of MRSA infection History of rectal polyps Benign. History of shingles Insulin dependent diabetes mellitus The with peripheral neuropathy. Hemoglobin A1c was 8.9 in January 2019. Osteoarthr
[2020-02-20] MEDS: AMIODARONE 360 MG/D5W 200 ML 360 MG/200 ML BAG 33.3 MG IV CONT (22:18)
[2020-02-20] MEDS: rOPINIRole HCL 0.25 MG TABLET PO (22:24)
[2020-02-20] MEDS: traZODone HCL 50 MG TABLET 150 MG PO (22:25)
[2020-02-20] MEDS: NICOTINE (*PBKC) 21 MG PATCH 1 PATCH TRANSDERM (22:34)
[2020-02-20] MEDS: VANCOMYCIN HCL 1,000 MG in SODIUM CHLORIDE 0.9% IV 250 ML 250 MG IVPB (22:58)
[2020-02-20] MEDS: ONDANSETRON INJ 4 MG/2 ML VIAL IV PUSH (23:12)
[2020-02-21] VITALS (14 sets, daily range): BP systolic 88–135; BP diastolic 54–69; PULSE 67–142; RESP 16–18; TEMP 36.2–36.9; O2SAT 98–100
[2020-02-21] MEDS: AMIODARONE 360 MG/D5W 200 ML 360 MG/200 ML BAG 16.7 MG IV CONT (04:04)
[2020-02-21] MEDS: LACTATED RINGERS 1,000 ML 125 ML IV CONT (05:11)
[2020-02-21 05:14] LABS: Basophils Percent Auto 0.3 % (0.2-1.2); Eosinophils Absolute Auto 0.1 K/mm3 (0-0.3); Eosinophils Percent Auto 1.3 % (0-4.4); Hematocrit 36.2 % (42.0-52.0); Immature Granulocyte Absolute 0.04 K/mm3 (0.00-0.031); Immature Granulocyte Percent A 0.4 % (0-0.5); Lymphocytes Absolute Auto 1.95 K/mm3 (0.9-3.2); Lymphocytes Percent Auto 20.6 % (18.3-44.2); Mean Corpuscular HGB Conc 33.1 g/dl (32-36); Mean Corpuscular Hemoglobin 29.6 pg (26-34); Mean Corpuscular Volume 89.4 fl (80-100); Mean Platelet Volume 9.6 fl (7.4-10.4); Monocytes Absolute Auto 0.9 K/mm3 (0.1-0.6); Monocytes Percent Auto 9.1 % (2.6-8.5); Neutrophils Absolute Auto 6.5 K/mm3 (1.3-6.7); Neutrophils Percent Auto 68.3 % (45.5-73.1); Platelet Count Result 267 k/mm3 (150-375); Red Blood Count 4.05 M/mm3 (4.6-6.20); Red Cell Distribution Width 13.8 % (11.5-14.5); White Blood Count 9.5 K/mm3 (4.5-10.0)
[2020-02-21 05:29] LABS: Alanine Aminotransferase 19 U/L (4-50); Albumin Level 2.9 g/dL (3.5-5.1); Alkaline Phosphatase 63 U/L (38-126); Aspartate Amino Transferase 18 U/L (17-59); Bilirubin,Total < 0.1 mg/dL (0.2-1.3); Blood Urea Nitrogen 26 mg/dL (9-20); CRP < 0.5 mg/dL (<1.0); Calcium 8.4 mg/dL (8.4-10.2); Carbon Dioxide 26 mmol/L (22-30); Chloride 105 mmol/L (98-107); Estimated CRCL calculation 70 ml/min; Estimated Glomerular Filt Rate > 60; Glucose 198 mg/dL (75-110); Magnesium 1.7 mg/dL (1.6-2.3); Potassium 4.1 mmol/L (3.4-5.0); Sodium 134 mmol/L (137-145)
[2020-02-21] MEDS: ONDANSETRON INJ 4 MG/2 ML VIAL IV PUSH (05:50)
[2020-02-21 08:02] LABS: Glucose Point of Care 233 (65-105)
[2020-02-21] MEDS: VENLAFAXINE HCL 75 MG TABLET PO (08:05)
[2020-02-21] MEDS: INSULIN ASPART (*BKC) 100 UNITS/ML SUB-Q ×2 (08:05→12:30)
[2020-02-21] MEDS: MIRTAZAPINE 15 MG TABLET PO (08:06)
[2020-02-21] MEDS: ROSUVASTATIN 10 MG TABLET 20 MG PO (08:06)
[2020-02-21] MEDS: CYANOCOBALAMIN 1,000 MCG TABLET 1000 MCG PO (08:06)
[2020-02-21] MEDS: PANTOPRAZOLE 40 MG TABLET PO (08:06)
[2020-02-21] MEDS: NICOTINE (*PBKC) 21 MG PATCH 1 PATCH TRANSDERM (08:07)
[2020-02-21] MEDS: ASPIRIN 81 MG ENTERIC TABLET PO (08:07)
[2020-02-21] MEDS: AMIODARONE HCL 200 MG TABLET PO (09:31)
[2020-02-21] MEDS: VANCOMYCIN HCL 1,000 MG in SODIUM CHLORIDE 0.9% IV 250 ML 250 MG IVPB (11:24)
[2020-02-21 12:16] LABS: Glucose Point of Care 278 (65-105)
--- NOTE | 2020-05-06 14:19 | PM.DS ---
DS: Admitting Diagnosis Admitting Diagnosis Admitting Diagnosis: Date of discharge 2019 Nausea and vomiting, dehydration, a-fib w/RVR DS: Discharge Diagnosis Discharge Diagnosis (1) Osteomyelitis of toe of right foot: Code(s): M86.9 - Osteomyelitis, unspecified Status: Acute Assessment and Plan: Pt has mild redness and has the leukocytosis so for vancomycin and Primaxin was started. The patient is no longer able to tolerate the Bactrim some reaction with it. Pt seen by orthopedics chronic OM ok for discharge follow up cardiology and PCP. Ulcer on digit healing well. (2) Tobacco dependence: Code(s): F17.200 - Nicotine dependence, unspecified, uncomplicated Status: Acute Assessment and Plan: On nicotine patch. (3) Diabetic foot ulcer associated with diabetes mellitus due to underlying condition: Qualifiers: Diabetic foot ulcer location: toe Laterality: right Non-pressure ulcer stage: with necrosis of muscle Qualified Code(s): E08.621 - Diabetes mellitus due to underlying condition with foot ulcer; L97.513 - Non-pressure chronic ulcer of other part of right foot with necrosis of muscle Code(s): E08.621 - Diabetes mellitus due to underlying condition with foot ulcer; L97.509 - Non-pressure chronic ulcer of other part of unspecified foot with unspecified severity Status: Acute Assessment and Plan: Continue with Accu-Cheks AC and HS (4) Atrial fibrillation with rapid ventricular response: Code(s): I48.91 - Unspecified atrial fibrillation Status: Acute Assessment and Plan: The patient is now on amiodarone drip. The patient was given IV Cardizem in the emergency room in oral amiodarone patient's continues to be AFib with RVR heart rate in the 130s. Pt is on oral amiodarone now (5) Nausea & vomiting: Code(s): R11.2 - Nausea with vomiting, unspecified Status: Acute Assessment and Plan: May be related to the use of the Bactrim. (6) Depression: Code(s): F32.9 - Major depressive disorder, single episode, unspecified Status: Chronic Assessment and Plan: Continue with trazodone (7) Dehydration: Code(s): E86.0 - Dehydration Status: Acute Assessment and Plan: Fluid hydrated. (8) Dyslipidemia: Code(s): E78.5 - Hyperlipidemia, unspecified Status: Acute Assessment and Plan: Continue with rosuvastatin DS: Summary Time Spent with Patient Time attestation: Total time spent providing and/or coordinating discharge services:40 minutes on day of discharge Exam Const: General: cooperative, healthy appearing, comfortable, no acute distress, well developed, alert, awake and Physically active Nutritional Appearance: average body habitus and well nourished Orientation/consciousness: oriented to person, oriented to place, oriented to time and patient oriented x3 Limitations: no limitations Resp: Effort & Inspection: normal respiratory effort Auscultation: clear to auscultation bilaterally Percussion: percussion normal Cardio: Palpation: normal PMI Rate: regular rate Rhythm: regular rhythm Heart sounds: S1 normal heart sound present and S2 normal heart sound present Peripheral pulses: Peripheral pulses 2+ throughout Neuro: General: oriented to person, oriented to place, oriented to time and patient oriented x3 Cranial nerves: Yes Equal, round and reactive pupils present and Yes Normal hearing present Cognition (Neuro): normal cognition Speech: normal speech Gait exam (Neuro): Normal gait present Motor exam (neuro): 5/5 motor strength present throughout Sensory Exam: normal sensation Extrem: Other: Ulcer on the 5 th digit healed some slight redness. Discharge Plan Discharge Attending physician on discharge: Tayler Garcia Consulting providers: Maggy Garcia Discharging Clinician: Tayler Garcia Anticipated Discharge Date/Time: 02/21/20 14:
== END 2020-02-21 15:30 | disposition home or self-care (01) ==
LOC: ANHED 17:46 → ANHIMU 20:17
PROVIDERS: Nurse Practitioner; Admitting Provider Internal Medicine; Emergency Provider Emergency Medicine; PCP Physician Assistant; Visit Provider Family Medicine
DX: I48.91 Unspecified atrial fibrillation (principal); E11.69 Type 2 diabetes mellitus with other specified complication; M86.8X7 Other osteomyelitis, ankle and foot; E11.42 Type 2 diabetes mellitus with diabetic polyneuropathy; R11.2 Nausea with vomiting, unspecified; E86.0 Dehydration; N17.9 Acute kidney failure, unspecified; E11.621 Type 2 diabetes mellitus with foot ulcer; L97.513 Non-pressure chronic ulcer of other part of right foot with necrosis of muscle; F32.9 Major depressive disorder, single episode, unspecified; E78.5 Hyperlipidemia, unspecified; D72.829 Elevated white blood cell count, unspecified; I25.10 Atherosclerotic heart disease of native coronary artery without angina pectoris; I25.2 Old myocardial infarction; Z66 Do not resuscitate; Z79.4 Long term (current) use of insulin; Z79.899 Other long term (current) drug therapy; Z95.5 Presence of coronary angioplasty implant and graft
CPT/HCPCS: 36415; 80053; 81001; 83690; 83735; 84443; 85025; 86140; 87040; 96361; 96365; 96366; 96367; 96368; 96374; 96375; 96376; 99285; A9270; G0378; G0379; J0282; J0743; J1815; J2405; J3360; J3370; J7030; J7050; J7120

== ENCOUNTER 2020-02-24 07:22 | Outpatient (RCR) | payer OTHER, SELFPAY ==
--- NOTE | 2020-02-17 08:30 | PM.IMHP ---
H&P: HPI History of Present Illness Chief complaint: L97.519 nonpressure chronic ulcer right foot Narrative: Ten Barroso is a 59 year old male who presents to the wound clinic 1 week after evaluation for right 5th ray ulcer and osteomyelitis. History, exam and previous radiographs reviewed with the patient. No open ulcer on the dorsal aspect of the 5th ray today. No redness, warmth, swelling or signs of active infection. No purulence, no malodor. Patient reports no fever, chills, night sweats, nausea, vomiting, diarrhea. He reports well-controlled blood glucose levels. He has been continuing use of fracture shoe for pressure offloading on the dorsal aspect of the 5th ray. Tolerating fracture shoe well. Review of Systems Constitutional: Constitutional: Reports no additional constitutional complaints, Denies excessive sweating, Denies fever(s) and Denies weight gain Eyes: Eyes: Reports no additional eye complaints and Denies change in vision ENT: Reports system reviewed and no additional complaints, except as documented and Reports Normal hearing present Cardiovascular: Cardiovascular: Denies chest pain, Denies diaphoresis, Denies leg ulcers and Denies dyspnea on exertion Respiratory: Respiratory: Reports no additional respiratory complaints, Denies cough and Denies dyspnea on exertion Gastrointestinal: Gastrointestinal: Reports no additional gastrointestinal complaints, Denies abdominal pain, Denies constipation, Denies nausea and Denies vomiting Genitourinary: Genitourinary: Reports no additional male genitourinary complaints, Denies hematuria and Denies urinary frequency Musculoskeletal: Musculoskeletal: Reports no additional musculoskeletal complaints and Reports as per HPI Neurologic: Reports Normal hearing present Endocrine: Endocrine: Reports no additional endocrine complaints, Denies change in body appearance, Denies excessive sweating, Denies polyphagia, Denies polydipsia and Denies polyuria [facility] Past Medical History Medical History Aftercare following surgery of the musculoskeletal system Benign prostatic hyperplasia Coronary artery disease History of [place] and stent in 2016. Depression Hammertoe of right foot History of anemia History of kidney stones History of MRSA infection History of rectal polyps Benign. History of shingles Insulin dependent diabetes mellitus The with peripheral neuropathy. Hemoglobin A1c was 8.9 in January 2019. Osteoarthritis Osteomyelitis of toe of right foot Paroxysmal atrial fibrillation Peripheral sensory neuropathy due to type 2 diabetes mellitus Tobacco dependence Surgical History Surgical History History of cardiac catheterization With stent x1 in 2016. History of transurethral resection of prostate Status post amputation of right great toe Status post ORIF of fracture of ankle Right ankle. Family History Family History Mother Lymphoma Father Kidney disease Other Cancer Diabetes mellitus Family history of cardiovascular disease Social History Social History Social History: Mr. Barroso lives in [place]. 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 He moved to the area June 2018 from [place]. He smokes 1 pack of cigarettes per day and has since his teenage years. He admits to marijuana use. He drinks alcohol socially and in moderation. His primary care providers Dr. Harsh Soliman. He designates his sister, Dinora Rueda, as his surrogate decision maker and he wishes to be a DNR. Smoking packs per day: 1 Smoking cigarettes per day: 20.0 Years smoked: 45 Smoking pack-years: 45.00 Smoking status: Current some day smoker Tobacco type: cigarettes Alcohol intake: never Substance use: cur
--- NOTE | 2020-02-24 09:36 | PM.IMHP ---
H&P: HPI History of Present Illness Chief complaint: L97.519 nonpressure chronic ulcer right foot Narrative: Ten Barroso is a 59 year old male who presents to the [facility] wound clinic for reevaluation of the right 5th ray ulcer and osteomyelitis. He was evaluated in the ED and admitted x1 day on 02/19 for nausea, vomiting, dehydration and Afib with RVR. His Bactrim which was previously ordered by the ED at his initial visit for concerns of the 5th ray ulcer was stopped during his most recent hospitalization. His WBC was normalized prior to discharge and his CRP is WNL. On exam today, no open ulcer on the dorsal aspect of the 5th ray today. No redness, warmth, swelling or signs of active infection. No purulence, no malodor. Patient reports improvement in nausea and appetite. He continues to endorse weakness with prolonged ambulation. He has a follow up with his PCP via telemedicine tomorrow per report. He has also contacted his systems support engineer, Dr. Evans for a follow up appointment. He denies new fever, chills or night sweats. He reports well-controlled blood glucose levels. He has been continuing use of fracture shoe for pressure offloading on the dorsal aspect of the 5th ray. Tolerating fracture shoe well. Review of Systems Constitutional: Constitutional: Reports no additional constitutional complaints, Denies excessive sweating, Denies fever(s) and Denies weight gain Eyes: Eyes: Reports no additional eye complaints and Denies change in vision ENT: Reports system reviewed and no additional complaints, except as documented and Reports Normal hearing present Cardiovascular: Cardiovascular: Denies chest pain, Denies diaphoresis, Denies leg ulcers and Denies dyspnea on exertion Respiratory: Respiratory: Reports no additional respiratory complaints, Denies cough and Denies dyspnea on exertion Gastrointestinal: Gastrointestinal: Reports no additional gastrointestinal complaints, Denies abdominal pain, Denies constipation, Denies nausea and Denies vomiting Genitourinary: Genitourinary: Reports no additional male genitourinary complaints, Denies hematuria and Denies urinary frequency Musculoskeletal: Musculoskeletal: Reports no additional musculoskeletal complaints and Reports as per HPI Neurologic: Reports Normal hearing present Endocrine: Endocrine: Reports no additional endocrine complaints, Denies change in body appearance, Denies excessive sweating, Denies polyphagia, Denies polydipsia and Denies polyuria [facility] Past Medical History Medical History Aftercare following surgery of the musculoskeletal system Benign prostatic hyperplasia Coronary artery disease History of [place] and stent in 2016. Depression Hammertoe of right foot History of anemia History of kidney stones History of MRSA infection History of rectal polyps Benign. History of shingles Insulin dependent diabetes mellitus The with peripheral neuropathy. Hemoglobin A1c was 8.9 in January 2019. Osteoarthritis Osteomyelitis of toe of right foot Paroxysmal atrial fibrillation Peripheral sensory neuropathy due to type 2 diabetes mellitus Tobacco dependence Surgical History Surgical History H/O foot surgery 10/28/2019 percutaneous flexor tenotomy of the right 2nd 4th 5th toes History of cardiac catheterization With stent x1 in 2016. History of transurethral resection of prostate Status post amputation of right great toe Status post ORIF of fracture of ankle Right ankle. Family History Family History Mother Lymphoma Father Kidney disease Other Cancer Diabetes mellitus Family history of cardiovascular disease Social History Social History Social History: Mr. Barroso lives in [place]. He is a retired registered nurse. His of 34 years just passed aw
== END 2020-05-03 08:12 | disposition home or self-care (01) ==
LOC: ANHWOC 07:22
PROVIDERS: PCP Physician Assistant; Visit Provider Nurse Practitioner Family
DX: E11.621 Type 2 diabetes mellitus with foot ulcer (principal); L97.519 Non-pressure chronic ulcer of other part of right foot with unspecified severity
CPT/HCPCS: 99212; G0463

== ENCOUNTER 2020-09-08 16:04 | Inpatient (IN) | payer OTHER, SELFPAY ==
[2020-09-08] VITALS (10 sets, daily range): BP systolic 136–147; BP diastolic 64–71; PULSE 67–79; RESP 11–18; TEMP 36–36.4; O2SAT 96–100; BMI 20.4
--- NOTE | ~2020-09-08 | MR_ITS ---
EXAMINATION: MR brain/brain stem wo/w con EXAM DATE: 09/09/2020 08:27 INDICATION: left side weakness, numbness. TECHNIQUE: Magnetic resonance imaging (MRI) of the brain/brain stem obtained without contrast. [place] T1, axial diffusion, gradient echo (T2*), T1, T2, FLAIR sequences obtained. Patient was then inj ected with 13 cc intravenous Multihance contrast. Axial and coronal postcontrast T1 weighted sequence s obtained. Correlation is made to CTA brain from 09/08/2020. FINDINGS: There is punctate focus of restricted diffusion in the right thalamus, an acute infarction. . There is no acute hemorrhage seen on the T2*, a hemosiderin sensitive sequence. No intraparenchym al brain mass. The ventricles are normal in size. There are no extra-axial collections. Flow voids are seen in the cerebral arteries on the T2-weighted sequences consistent with their expected patency . The orbits are unremarkable. Soft tissue is unremarkable. There are no areas of abnormal enhanc ement on the postcontrast images. IMPRESSION: 1. Punctate right thalamic acute lacunar infarction. Reviewed, dictated and finalized at location A. LANGUAGE INSTRUCTOR
--- NOTE | ~2020-09-08 | XR_ITS ---
EXAMINATION: XR chest 1V portable INDICATION: Left-sided numbness, coronary artery disease, shortness of breath TECHNIQUE: Portable AP chest at 1718 hours COMPARISON: 07/21/2019 FINDINGS: The lungs are free of acute opacities. There is no pleural effusion or pneumothorax. The ca rdiomediastinal silhouette is normal. Calcified atherosclerosis is noted. IMPRESSION: 1. No acute cardiopulmonary abnormality. Reviewed, dictated and finalized at location A. GEMENT SME
--- NOTE | ~2020-09-08 | US_ITS ---
EXAMINATION: US venous doppler [facility] DATE: 09/09/2020 14:05 INDICATION: New stroke. Assess for deep venous thrombosis. TECHNIQUE: Grayscale ultrasound images without and with compression and Doppler ultrasound images of the bilateral lower extremity veins were obtained. COMPARISON: None. FINDINGS: The visualized portions of right common femoral vein, profunda (deep) femoral vein, femoral vein, pop liteal vein, posterior tibial veins, peroneal veins, gastrocnemius vein and greater saphenous vein ou tflow are patent. The visualized portions of left common femoral vein, profunda femoral vein, femoral vein, popliteal v ein, posterior tibial veins, peroneal veins, gastrocnemius vein and greater saphenous vein outflow ar e patent. IMPRESSION: 1. No deep venous thrombosis in either lower limb. Reviewed, dictated and finalized at location A. TRO PLATER
--- NOTE | ~2020-09-08 | CT_ITS ---
EXAMINATION: CTA brain carotid DATE: 09/08/2020 18:00 INDICATION: Left-sided hemiparesis TECHNIQUE: Computed tomographic angiography (CTA) of the head was performed without and with 100 mL O mnipaque-350 intravenous contrast. CTA of the neck was performed with intravenous contrast. The dose- length product was 1702.60 mGy-cm. Maximum intensity projection and volume rendered 3D-reconstruction s were created by the technologist on a separate workstation. Automated exposure control and iterativ e reconstruction technique were employed. COMPARISON: None. FINDINGS: HEAD CTA: There is no intracranial hemorrhage, acute infarction, or abnormal mass lesion. The ventric les are normal. There is no abnormal mass effect or midline shift. The jacques-white matter differentiat ion is normal. The basal cisterns are patent. The orbits are normal. The paranasal sinuses, mastoids and calvarium are normal. Intracranial calcified cerebral atherosclerosis is noted. There is no significant stenosis of the basilar artery or posterior cerebral arteries. There is no si gnificant stenosis of the intracranial internal carotid arteries or the anterior or middle cerebral a rteries. The anterior communicating artery and posterior communicating arteries are normal. There is no aneurysm. The left transverse sinus is hypoplastic. NECK CTA: The thyroid gland is unremarkable. The submandibular and parotid glands are symmetric. Ther e is no lymphadenopathy. There are no masses identified. The airway is unremarkable. There are no oss eous abnormalities. The superior mediastinum is unremarkable. There is 0% stenosis of the proximal right internal carotid artery relative to normal distal artery l umen diameter (NASCET criteria). There is 0% stenosis of the proximal left internal carotid artery re lative to normal distal artery lumen diameter. IMPRESSION: 1. No acute intracranial abnormality. Normal head CTA. 2. 0% stenosis of the proximal right internal carotid artery relative to normal distal artery lumen d iameter (NASCET criteria). 3. 0% stenosis of the proximal left internal carotid artery relative to normal distal artery lumen di ameter. Reviewed, dictated and finalized at location A. X RAY IMPRESSION: 1. No acute intracranial abnormality. Normal head CTA. 2. 0% stenosis of the proximal right internal carotid artery relative to normal distal artery lumen diameter (NASCET criteria). 3. 0% stenosis of the proximal left internal carotid artery relative to normal distal artery lumen diameter.
--- NOTE | 2020-09-08 16:54 | ECG_ITS ---
Measurements Intervals [place] Rate: 66 P: 60 IN: 161 QRS: 42 QRSD: 108 T: 69 QT: 437 QTc: 459 Interpretive Statements SINUS RHYTHM NORMAL ECG Electronically Signed On 09-08-2020 17:17:05 [employer]OVE [employer] by Justo Evans D.O.
[2020-09-08 17:24] LABS: Basophils Percent Auto 0.5 % (0.2-1.2); Eosinophils Absolute Auto 0.2 K/mm3 (0-0.3); Eosinophils Percent Auto 1.9 % (0-4.4); Immature Granulocyte Absolute 0.05 K/mm3 (0.00-0.031); Immature Granulocyte Percent A 0.6 % (0-0.5); Lymphocytes Absolute Auto 1.12 K/mm3 (0.9-3.2); Lymphocytes Percent Auto 14.5 % (18.3-44.2); Mean Corpuscular HGB Conc 33.3 g/dl (32-36); Mean Corpuscular Volume 89.9 fl (80-100); Mean Platelet Volume 9.9 fl (7.4-10.4); Monocytes Absolute Auto 0.8 K/mm3 (0.1-0.6); Monocytes Percent Auto 10.7 % (2.6-8.5); Neutrophils Absolute Auto 5.6 K/mm3 (1.3-6.7); Neutrophils Percent Auto 71.8 % (45.5-73.1); Platelet Count Result 262 k/mm3 (150-375); Red Blood Count 4.34 M/mm3 (4.6-6.20); Red Cell Distribution Width 13.4 % (11.5-14.5); White Blood Count 7.7 K/mm3 (4.5-10.0)
[2020-09-08 17:38] LABS: Anion Gap 5 mmol/L (8-16); Blood Urea Nitrogen 28 mg/dL (9-20); Calcium 9.1 mg/dL (8.4-10.2); Carbon Dioxide 27 mmol/L (22-30); Chloride 101 mmol/L (98-107); Estimated CRCL calculation 53 ml/min; Estimated Glomerular Filt Rate 57; Glucose 401 mg/dL (75-110); Potassium 4.6 mmol/L (3.4-5.0); Sodium 133 mmol/L (137-145)
--- NOTE | 2020-09-08 17:44 | ED.NEUROSD ---
HPI - Neuro Symptoms/Deficit General Chief Complaint: Neuro Symptoms/Deficit Stated Complaint: numbness to arm, palpations Time Seen by Provider: 09/08/20 16:46 Source: patient Mode of arrival: ambulatory Limitations: no limitations History of Present Illness HPI Narrative: This patient is a 59 year old male with history of neuropathy, paroxsymal afib who presents for evaluation of possible afib and left side weakness and numbness. He states he has had intermittent episodes of heart fluttering for 2 days. He does not currently feel it now. He reports left side weakness in his left leg and left arm. He also reports intermittent numbness and tingling to his left arm, left hand and left leg. HE denies having tingling currently. He denies chest pain currently but he reports shortness of breath and chest heaviness with exertion. He takes amiodarone for his atrial fibrillation. He states that he has declined chronic anticoagulation. Onset (ago): day(s) (3) Related Data Home Medications Medication Instructions Recorded Confirmed Basaglar KwikPen U-100 Insulin 30 unit SUBCUT BID 06/17/19 05/27/20 amiodarone 200 mg PO DAILY 06/17/19 05/27/20 aspirin [Adult Low Dose Aspirin] 81 mg PO DAILY 06/17/19 05/27/20 insulin lispro [Humalog U-100 12 unit SUBCUT TIDWM 06/17/19 05/27/20 Insulin] trazodone 150 mg PO HS 06/17/19 05/27/20 ropinirole 0.25 mg PO HS 07/21/19 05/27/20 rosuvastatin 20 mg PO DAILY 07/21/19 05/27/20 clonazepam 0.5 mg tablet 0.5 mg PO DAILY 01/15/20 05/27/20 omega 2-[id number]-qtc-fish oil 1,000 mg 1 cap PO DAILY 01/15/20 05/27/20 (120 mg-180 mg) capsule omeprazole 20 mg capsule,delayed 20 mg PO DAILY 01/15/20 05/27/20 release Allergies Allergy/AdvReac Type Severity Reaction Status Date / Time salmon oil Allergy Intermediate Swelling Verified 09/08/20 18:50 lisinopril Allergy Unknown lowers BP Verified 09/08/20 18:50 too much meperidine Allergy Unknown Unknown Verified 09/08/20 18:50 sulfamethoxazole AdvReac Severe light Verified 09/08/20 18:50 [From Bactrim] headed, vomiting severe trimethoprim [From Bactrim] AdvReac Severe light Verified 09/08/20 18:50 headed, vomiting severe MIX IV'S IN NS Allergy Unknown Unknown Uncoded 09/08/20 18:50 Review of Systems Review of Systems: All systems reviewed & are unremarkable except as noted in HPI and below Constitutional: Constitutional: Denies chills and Denies fever(s) Eyes: Eyes: Reports change in vision Cardiovascular: Cardiovascular: Denies chest pain and Reports irregular heart rhythm Respiratory: Respiratory: Denies cough and Denies dyspnea Gastrointestinal: Gastrointestinal: Denies abdominal pain, Denies nausea and Denies vomiting Genitourinary: Genitourinary: Denies hematuria and Denies oliguria Neurologic: Denies headache(s), Reports focal weakness, Reports numbness and Reports weakness PMFSH Past Medical History Medical History (Updated 09/08/20 @ 23:16 by Treasure Buck MD) Aftercare following surgery of the musculoskeletal system Benign prostatic hyperplasia Coronary artery disease History of CT and stent in 2016. Depression Hammertoe of right foot History of anemia History of kidney stones History of MRSA infection History of rectal polyps Benign. History of shingles Insulin dependent diabetes mellitus The with peripheral neuropathy. Hemoglobin A1c was 8.9 in January 2019. Osteoarthritis Osteomyelitis of toe of right foot Paroxysmal atrial fibrillation Peripheral sensory neuropathy due to type 2 diabetes mellitus Tobacco dependence Surgical History Surgical History H/O foot surgery 10/28/2019 percutaneous flexor tenotomy of the right 2nd 4th 5th toes History of cardiac catheterization With stent x1 in 2016. History of transurethral resection of prostate Status post amputation of right great toe Status post ORIF of fracture of ankle
[2020-09-08 17:48] LABS: Troponin I < 0.012 ng/mL (0.000-0.034)
[2020-09-08 18:45] LABS: Prothrombin Time 13.9 Seconds (11.1-14.7)
[2020-09-08] MEDS: SODIUM CHLORIDE 0.9% IV 1,000 ML 999 ML IV CONT (19:22)
[2020-09-08 19:29] LABS: Glucose Point of Care 338 (65-105)
--- NOTE | 2020-09-08 19:37 | PC.NURSE ---
Pt given turkey sandwich/lunch and diet soda po.
[2020-09-08] MEDS: INSULIN HUMAN REGULAR (*BKC) 100 UNITS/ML 12 UNITS SUB-Q (19:41)
--- NOTE | 2020-09-08 20:55 | PC.NURSE ---
SBAR faxed to floor.
--- NOTE | 2020-09-08 21:14 | PC.NURSE ---
JEMMA Winter, at bedside for evaluation.
--- NOTE | 2020-09-08 22:00 | ADMGEN ---
This patient, Ten Barroso, was admitted to Medical Room 342-01. Patient/family oriented to hospital policies and general routines including ID bracelet, bed and alarms, visiting hours, pain management, procedures, bathroom and other care routines, personal items, smoking policy, room service/diet, and visiting hours. Information on how to activate the Rapid Response Team has been discussed. Patient/Family are encouraged to report perceived risks to care and to ask questions if they do not understand what they are told or what they should do.
--- NOTE | 2020-09-08 23:08 | PM.IMHP ---
H&P: HPI History of Present Illness Date/Time: 09/08/20 23:08 Chief Complaint: Paresthesias left arm Narrative: Ten Barroso is a 59 year old male who is well-known to me I have seen him on several occasions. The patient does have a history of diabetes with neuropathy and paroxysmal atrial fibrillation. The patient came in today to be evaluated for some numbness and tingling to the left side of his body the left arm and left leg. Was intermittent and was going on for 2 days. The patient also had some fluttering and thought maybe he was in atrial fibrillation again. Patient is not on any anticoagulation but only takes aspirin. He is not on any anticoagulation due to bleeding disorder. The patient came in because he is having some numbness and tingling to his left upper arm lower extremity. The patient denies any chest pain or any shortness of breath or any chest heaviness he does take amiodarone no for his atrial fibrillation. The patient stated that he has been in a lot of stress with his home life. In the ER and he was noted to be sinus rhythm with a heart rate of 66 on his EKG. Head and neck CTA shows no acute intracranial abnormality normal head CT and 0% stenosis of the right internal internal carotid artery. The patient was moving all extremities and talking in full sentences when I evaluate him. He had no neurological deficits when I saw him in the emergency room. The patient is already on an aspirin. IV fluids and he was given subcu insulinOn the patient. With insulin in the emergency room. Troponin was negative. Patient is being admitted to observation on the date of service of 09/08/2020. Review of Systems Review of Systems: All systems reviewed & are unremarkable except as noted in HPI and below Constitutional: Constitutional: Reports as per HPI and Reports no additional constitutional complaints Eyes: Eyes: Reports as per HPI and Reports no additional eye complaints ENT: Reports system reviewed and no additional complaints, except as documented and Reports Normal hearing present Cardiovascular: Cardiovascular: Reports no additional cardiovascular complaints Respiratory: Respiratory: Reports no additional respiratory complaints and Reports no additional respiratory complaints Gastrointestinal: Gastrointestinal: Reports as per HPI and Reports no additional gastrointestinal complaints Musculoskeletal: Musculoskeletal: Reports no additional musculoskeletal complaints Integumentary/Breasts: Skin/Breast: Reports system reviewed and no additional complaints, except as docu and Reports as per HPI Neurologic: Reports system reviewed and no additional complaints, except as documented, Reports as per HPI and Reports Normal hearing present Psychiatric: Psychiatric: Reports no additional psychiatric complaints and Reports as per HPI Endocrine: Endocrine: Reports no additional endocrine complaints Hematologic/Lymphatic: Hematologic/Lymphatic: Reports no additional hematologic/lymphatic complaints Allergic/Immunologic: Allergic/Immunologic: Reports no additional allergic/immunologic complaints [facility] Past Medical History Medical History (Updated 09/09/20 @ 00:07 by Maggy Garcia NP) Aftercare following surgery of the musculoskeletal system Anxiety Benign prostatic hyperplasia Coronary artery disease History of [place] and stent in 2016. Depression Hammertoe of right foot History of anemia History of kidney stones History of MRSA infection History of rectal polyps Benign. History of shingles Insulin dependent diabetes mellitus The with peripheral neuropathy. Hemoglobin A1c was 8.9 in January 2019. Osteoarthritis Osteomyelitis of toe of right foot Paroxysmal atrial fibrillation Peripheral sensory neuropathy due to type 2 diabetes mellitus Tobacco dependence Surgical History Surgical History H/O foot surgery 10/28/2019 percutaneous flexor tenotomy of the right
[2020-09-08 23:24] LABS: Glucose Point of Care 315 (65-105)
[2020-09-09] VITALS (9 sets, daily range): BP systolic 105–135; BP diastolic 44–68; PULSE 57–82; RESP 16–18; TEMP 36.2–36.5; O2SAT 97–98
--- NOTE | 2020-09-09 | ECHO_ITS ---
Patient Info Name: Ten Barroso Age: 59 years : 1960 Gender: Male Ht: 72 in Wt: 150 lbs BSA: 1.85 m2 HR: 66 bpm BP: 105 / 51 mmHg Technical Quality: Good Exam Date: 09/09/2020 10:11 AM Exam Location: [facility] Patient Status: Inpatient Admit Date: 09/09/2020 Staff Ordering Physician: Maggy Garcia NP [employer] Clerk: Ronnie Clark RDCS, RT Attending Provider: Randi Guaman PA-C Referring Physician: Jose MALDONADO; Exam Type: CA echo doppler w bubble study Study Info Indications R06.02 - Shortness of breath Complete two-dimensional, color flow and Doppler transthoracic echocardiogram is performed. Strain analysis performed. Summary 1. Complete two-dimensional, color flow and Doppler transthoracic echocardiogram is performed. 2. Left ventricular chamber dimension is normal. 3. Left ventricular systolic function is normal, estimated at 60-65%. 4. There is mildly increased left ventricular wall thickness. 5. The left ventricular diastolic function is abnormal. 6. E/e' 10 is mildly elevated. 7. Global longitudinal strain is normal at -21.2%. 8. Left atrial chamber dimension is mildly enlarged. 9. There is trace mitral valve regurgitation. Left Ventricle E/e' 10 is mildly elevated. Global longitudinal strain is normal at -21.2%. Left ventricular chamber dimension is normal. Left ventricular systolic function is normal, estimated at 60-65%. There is mildly increased left ventricular wall thickness. The left ventricular diastolic function is abnormal. Right Ventricle Right ventricular chamber dimension is normal. Right ventricular systolic function is normal. Left Atria Left atrial chamber dimension is mildly enlarged. Right Atria Right atrial chamber dimension is normal. Aortic Valve The aortic valve is trileaflet. There is no aortic valve stenosis. There is no aortic valve regurgitation. Pulmonic Valve There is no pulmonic regurgitation. Mitral Valve There is no mitral valve stenosis. There is trace mitral valve regurgitation. Tricuspid Valve There is no tricuspid valve regurgitation. Pericardium/Pleural There is no pericardial effusion. Inferior Vena Cava Normal inferior vena cava with >50% collapse upon inspiration consistent with normal right atrial pressure, 5 mmHg. Aorta The aortic root size at the sinus of Valsalva is normal. Left Ventricular Outflow Tract Name Value Normal LVOT 2D LVOT Diameter 2.1 cm LVOT Doppler LVOT Peak Gradient 4 mmHg LVOT Mean Gradient 2 mmHg LVOT VTI 21 cm LVOT VTI/AV VTI Ratio 0.8 LVOT Stroke Volume 72 ml LVOT CO 4.9 l/min LVOT CI 2.6 l/min/m2 Mitral Valve Name Value Normal MV Doppler
[2020-09-09] MEDS: traZODone HCL 50 MG TABLET 150 MG PO ×2 (00:18→22:05)
[2020-09-09] MEDS: rOPINIRole HCL 0.25 MG TABLET PO ×2 (00:18→22:05)
[2020-09-09] MEDS: clonazePAM (*CRX) 0.5 MG TABLET 1 MG PO ×2 (00:18→22:05)
[2020-09-09 05:39] LABS: Basophils Percent Auto 0.6 % (0.2-1.2); Eosinophils Absolute Auto 0.2 K/mm3 (0-0.3); Eosinophils Percent Auto 2.5 % (0-4.4); Hematocrit 33.1 % (42.0-52.0); Hemoglobin 10.8 g/dL (14.0-18.0); Immature Granulocyte Absolute 0.03 K/mm3 (0.00-0.031); Immature Granulocyte Percent A 0.5 % (0-0.5); Lymphocytes Absolute Auto 1.79 K/mm3 (0.9-3.2); Lymphocytes Percent Auto 28.1 % (18.3-44.2); Mean Corpuscular HGB Conc 32.6 g/dl (32-36); Mean Corpuscular Hemoglobin 29.2 pg (26-34); Mean Corpuscular Volume 89.5 fl (80-100); Mean Platelet Volume 9.4 fl (7.4-10.4); Monocytes Absolute Auto 0.7 K/mm3 (0.1-0.6); Monocytes Percent Auto 10.3 % (2.6-8.5); Neutrophils Absolute Auto 3.7 K/mm3 (1.3-6.7); Platelet Count Result 217 k/mm3 (150-375); Red Cell Distribution Width 13.3 % (11.5-14.5); White Blood Count 6.4 K/mm3 (4.5-10.0)
[2020-09-09 05:46] LABS: Alanine Aminotransferase 32 U/L (4-50); Albumin Level 3.1 g/dL (3.5-5.1); Alkaline Phosphatase 65 U/L (38-126); Anion Gap 2 mmol/L (8-16); Aspartate Amino Transferase 21 U/L (17-59); Bilirubin,Total 0.2 mg/dL (0.2-1.3); Blood Urea Nitrogen 22 mg/dL (9-20); Calcium 8.5 mg/dL (8.4-10.2); Carbon Dioxide 29 mmol/L (22-30); Chloride 105 mmol/L (98-107); Estimated CRCL calculation 53 ml/min; Estimated Glomerular Filt Rate 57; Glucose 212 mg/dL (75-110); Magnesium 1.7 mg/dL (1.6-2.3); Potassium 4.1 mmol/L (3.4-5.0); Sodium 136 mmol/L (137-145)
[2020-09-09 05:59] LABS: Hemoglobin A1C 10.5 % (<5.7)
[2020-09-09 07:41] LABS: Glucose Point of Care 250 (65-105)
[2020-09-09 09:52] LABS: Glucose Point of Care 356 (65-105)
[2020-09-09] MEDS: ROSUVASTATIN 10 MG TABLET 20 MG PO (09:53)
[2020-09-09] MEDS: PANTOPRAZOLE SOD SESQUIHYDRATE 20 MG TAB PO (09:53)
[2020-09-09] MEDS: AMIODARONE HCL 200 MG TABLET PO (09:53)
[2020-09-09] MEDS: ASPIRIN 81 MG ENTERIC TABLET PO (09:53)
[2020-09-09] MEDS: OMEGA 3 POLYUNSAT FATTY ACIDS 1 GM CAP PO (09:53)
[2020-09-09] MEDS: INSULIN GLARGINE (*BKC) 100 UNITS/ML 30 UNITS SUB-Q ×2 (09:54→17:13)
--- NOTE | 2020-09-09 10:55 | PM.IMPN ---
Progress Note: A&P Assessment and Plan (1) Paresthesia of left upper and lower extremity: Code(s): R20.2 - Paresthesia of skin Status: Acute Assessment and Plan: Patient presented with intermittent numbness and tingling with a history of paroxysmal atrial fibrillation not on anticoagulation. Patient was admitted into the hospital for further CVA workup. CT head and neck Was performed showing no acute intracranial abnormality. 0% stenosis to right and left internal carotid artery. MRI was completed showing punctate right thalamic acute lacunar infarct. Echo with bubble study is currently pending. Patient has been more sedentary last few weeks so we also check a venous Doppler bilaterally to rule out DVT. On telemetry since arrival he has remained in normal sinus rhythm with a heart rate of 76 beats per minute, mostly artifact noted on alarms. Neurology was consulted for further evaluation Will also consult Cardiology due to his history of proximal atrial fibrillation to get him on the correct medications for further treatment and prevention of strokes in the future. Patient has no neurologic symptoms at this time. Continue monitoring. (2) Paroxysmal atrial fibrillation: Code(s): I48.0 - Paroxysmal atrial fibrillation Status: Chronic Assessment and Plan: He is in normal sinus rhythm on telemetry with no signs of atrial fibrillation at this time. Will continue his amiodarone and aspirin [address] Evans Cardiology who is seen in the past for further evaluation and adjustments to his medications to prevent him from having another stroke in the future. Echocardiogram with bubble study is pending TSH normal. Continue monitoring on tele. (3) Insulin dependent diabetes mellitus: Code(s): E11.9 - Type 2 diabetes mellitus without complications; Z79.4 - jail (current) use of insulin Status: Acute Assessment and Plan: Patient is a chronic diabetic on long-term insulin therapy with sliding scale with meals. Hemoglobin A1c is 10.5%. Will continue with his insulin as prescribed and sliding scale. Check glucose ACHS. Hypoglycemic protocol in place. (4) Dyslipidemia: Code(s): E78.5 - Hyperlipidemia, unspecified Status: Acute Assessment and Plan: Continue with Crestor. (5) Peripheral sensory neuropathy due to type 2 diabetes mellitus: Code(s): E11.42 - Type 2 diabetes mellitus with diabetic polyneuropathy Status: Acute Assessment and Plan: Continue with ropinirole (6) Anxiety: Code(s): F41.9 - Anxiety disorder, unspecified Status: Chronic Assessment and Plan: Continue with Klonopin Time Spent With Patient Time with patient: 25 - 35 minutes Subjective Date/time seen: 09/09/20 10:55 Interval history: Patient is a 59-year-old man with a history of paroxysmal atrial fibrillation, diabetes, hyperlipidemia, who presented to the emergency department for intermittent numbness and tingling. He reports the last few weeks he has been going in and out of AFib daily. Patient states on 09/06/2020, he noticed he went into AFib and he did not convert back into normal sinus rhythm for 2-3 hours. He got up to walk around and noticed that his whole left leg was numb, tingling and heavy when he walked. He also noticed numbness and tingling from his left axillary area down to his left pinky and ring finger. Symptoms improved and he did not come to the emergency department. Then on 09/08/2020 he felt numbness and tingling to his left upper lip area and called his primary who sent him to the ER for further evaluation and rule out CVA. Date of servic
[2020-09-09 11:26] LABS: Glucose Point of Care 372 (65-105)
[2020-09-09] MEDS: INSULIN ASPART (*BKC) 100 UNITS/ML SUB-Q ×2 (11:30→17:11)
--- NOTE | 2020-09-09 11:55 | PM.CNCAR ---
Assessment and Plan Assessment and plan (1) Paresthesia of left upper and lower extremity: Code(s): R20.2 - Paresthesia of skin Status: Acute Assessment and Plan: Due to stroke likely. (2) Dyslipidemia: Code(s): E78.5 - Hyperlipidemia, unspecified Status: Acute (3) CAD (coronary artery disease): Code(s): I25.10 - Atherosclerotic heart disease of [place] coronary artery without angina pectoris Status: Acute Assessment and Plan: Stable. (4) Paroxysmal atrial fibrillation: Code(s): I48.0 - Paroxysmal atrial fibrillation Status: Chronic Assessment and Plan: [id number] 5, high risk for cardioembolism. Continue Amiodarone. Discussed anticoagulation with patient extensively and he is willing to go on Xarelto 20 mg daily to prevent recurrence. Will need outpatient sleep study as this could be a trigger for breakthrough PAF despite Amiodarone. If he gets discharged, f/u with me in 1 week. (5) Stroke: Code(s): I63.9 - Cerebral infarction, unspecified Status: Acute Assessment and Plan: Agree with neurology consult. History of Present Illness History of Present Illness Consult date/time: 09/09/20 11:55 Stroke with h/o PAF. 59 yr old man who is my regular cardiology patient presented to hospital with stroke symptoms. He has a history of CAD with stent in 2005 in [place], PAF, dyslipidemia, DM, smoking, COPD. States he feels daily palpitations lasting 5-10 minutes intermittently and once it last up to 3 hours. He thinks it may be PAF. 3 days ago he felt numbness around his mouth and left arm to his left 4th and 5th fingers and left leg. Those symptoms lasted 1-2 days. MRI brain shows acute lacunar infarct of right thalamus. CTA head/neck is normal. Admits to snoring, difficulty sleeping and daytime sleepiness. He quit smoking last month. He refused anticoagulation previously due to easy bruising despite knowing higher risk of cardioembolism. He had atrial fib on 02/20/20 to 02/21/20 and was placed on Amiodarone drip and converted back to sinus rhythm. He gets palpitations about twice a week lasting 5 minutes. He can walk very minimal distance and limited by foot pain from toe amputations and prior ankle injury and BENSON. Reports he notices chest tightness intermittently with activity. Denies orthopnea, PND, dizziness. He has edema of legs only at end of the day. CARDIOVASCULAR PROCEDURES 04/07/19 Lexiscan myoview: negative for ischemia. Echo (EF 60%, mild LVH, mild LAE, mild MAC, trace MR/TR.) - 02/04/2019 ELECTROPHYSIOLOGY: 05/04/20 EKG: Sinus rhythm. EVR (30 day event monitor: Sinus rhythm, HR 50-138 bpm; average 87 bpm; <1% PAC's, 1 SVT 132 bpm at 14 beats; <1% PVC's, VT 138 bpm at 6 beats.) - 01/20/2019 EKG (Sinus rhythm.) - 01/09/2019 PFT on 02/18/20: Mod air trapping c/w obstruction. JASPAL (Normal JASPAL bilaterally.) - 12/18/2018 Reason For Visit: left side paresthesia and weakness Review of Systems Constitutional: Constitutional: Reports as per HPI, Denies chills, Reports daytime sleepiness, Reports difficulty sleeping, Reports fatigue, Denies fever(s) and Reports snoring Cardiovascular: Cardiovascular: Reports as per HPI, Reports rapid heart rate and Reports irregular heart rhythm Respiratory: Respiratory: Reports as per HPI and Denies dyspnea Gastrointestinal: Gastrointestinal: Reports as per HPI and Denies abdominal pain Genitourinary: Genitourinary: Reports as per HPI and Denies dysuria Musculoskeletal: Musculoskeletal: Reports as per HPI Neurologic: Reports as per HPI, Denies Abnormal speech present and Reports paresthesias [facility] Past Medical History Medical History (Updated 09/09/20 @ 12:01 by Justo Evans DO) Aftercare following surgery of the musculoskeletal system Anxiety Benign prostatic hyperplasia Coronary artery disease History of [place] and stent in 2016. Depression Hammertoe of right foot History of anemia History of kidney st
--- NOTE | 2020-09-09 13:14 | WPDNEURCNPN ---
Assessment and Plan Assessment and plan (1) Stroke: Code(s): I63.9 - Cerebral infarction, unspecified Status: Acute (2) Anxiety: Code(s): F41.9 - Anxiety disorder, unspecified Status: Chronic Additional Plan diabetic with poor compliance complicated by thalamic subcortical stroke aggravating the underlying neuropathic symptoms with central symptomatology as well will benefit from the compliance as well as ongoing treatment of the diabetes mellitus in addition to aspirin and Plavix but cardiac evaluation in the future documents atrial fibrillation only then coagulation can be added Consult date: 09/09/20 Time Seen: 13:00 HPI: Ten Barroso is a 59 year old male admitted to the hospital for the ongoing diagnosis of 1. Diabetic neuropathy 2. Paroxysmal atrial fibrillation and 3. Ongoing complaint of numbness and tingling to the left side of the body involving the left upper and left lower extremity a 48 hours duration patient has the history of fluttering he was not on any anticoagulation therapy CTA of the head and neck is normal with 0% stenosis of the internal carotid artery, MRI of the brain revealed only punctate right thalamic acute lacunar infarction and echocardiogram documented no significant abnormalities except left atrial chamber dimension was mildly enlarged, routine blood studies with borderline GFR glucose 212 and most recently 372 along with hemoglobin A1c of 10.5 patient at present receiving rivaroxaban 20 mg daily in addition to the diabetic treatment with insulin, with the 40s smoking pack years never alcohol drinker Review of Systems Review of Systems: All systems reviewed & are unremarkable except as noted in HPI and below PMFSH Past Medical History Medical History Aftercare following surgery of the musculoskeletal system Anxiety Benign prostatic hyperplasia Coronary artery disease History of [place] and stent in 2016. Depression Hammertoe of right foot History of anemia History of kidney stones History of MRSA infection History of rectal polyps Benign. History of shingles Insulin dependent diabetes mellitus The with peripheral neuropathy. Hemoglobin A1c was 8.9 in January 2019. Osteoarthritis Osteomyelitis of toe of right foot Paroxysmal atrial fibrillation Peripheral sensory neuropathy due to type 2 diabetes mellitus Tobacco dependence Surgical History Surgical History H/O foot surgery 10/28/2019 percutaneous flexor tenotomy of the right 2nd 4th 5th toes History of cardiac catheterization With stent x1 in 2016. History of transurethral resection of prostate Status post amputation of right great toe Status post ORIF of fracture of ankle Right ankle. Family History Family History Mother Lymphoma Father Kidney disease Other Cancer Diabetes mellitus Family history of cardiovascular disease Social History Social History Social History: Mr. Barroso lives in [place]. 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 He moved to the area June 2018 from [place]. He smokes 1 pack of cigarettes per day and has since his teenage years. He admits to marijuana use. He drinks alcohol socially and in moderation. He designates his sister, Dinora Rueda, as his surrogate decision maker and he wishes to be a full code. He now lives with that sister Dinora, they share a house together. Smoking packs per day: 1 Smoking cigarettes per day: 20.0 Years smoked: 40 Smoking pack-years: 40.00 Smoking status: Former smoker Tobacco type: cigarettes Second hand tobacco smoke exposure: Yes Smoking end date: 02/18/20 Additional smoking assessment comments: Patient stated that he has not smoke cigarettes the last couple days. Alcohol
[2020-09-09] MEDS: RIVAROXABAN 20 MG TABLET PO (17:16)
[2020-09-09 17:23] LABS: Glucose Point of Care 292 (65-105)
[2020-09-09 22:10] LABS: Glucose Point of Care 333 (65-105)
[2020-09-10] VITALS (7 sets, daily range): BP systolic 106; BP diastolic 48; PULSE 52–70; RESP 17; TEMP 36.2; O2SAT 98
[2020-09-10 06:10] LABS: Anion Gap -1 mmol/L (8-16); Blood Urea Nitrogen 22 mg/dL (9-20); Calcium 8.7 mg/dL (8.4-10.2); Carbon Dioxide 32 mmol/L (22-30); Chloride 104 mmol/L (98-107); Cholesterol 138 mg/dL (0-200); Estimated CRCL calculation 57 ml/min; Estimated Glomerular Filt Rate > 60; Glucose 187 mg/dL (75-110); HDL Direct 37 mg/dL; Potassium 3.7 mmol/L (3.4-5.0); Sodium 135 mmol/L (137-145); Triglycerides 159 mg/dL (<150)
[2020-09-10 06:20] LABS: LDL Cholesterol Direct 74 mg/dL
[2020-09-10] MEDS: ROSUVASTATIN 10 MG TABLET 20 MG PO (08:07)
[2020-09-10] MEDS: AMIODARONE HCL 200 MG TABLET PO (08:07)
[2020-09-10] MEDS: ASPIRIN 81 MG ENTERIC TABLET PO (08:07)
[2020-09-10] MEDS: PANTOPRAZOLE SOD SESQUIHYDRATE 20 MG TAB PO (08:08)
[2020-09-10] MEDS: OMEGA 3 POLYUNSAT FATTY ACIDS 1 GM CAP PO (08:08)
[2020-09-10] MEDS: INSULIN GLARGINE (*BKC) 100 UNITS/ML 30 UNITS SUB-Q (08:08)
--- NOTE | 2020-09-10 08:08 | PM.PNCARD ---
Progress Note: A&P Assessment and Plan (1) Paresthesia of left upper and lower extremity: Code(s): R20.2 - Paresthesia of skin Status: Acute Assessment and Plan: Due to stroke likely. (2) Dyslipidemia: Code(s): E78.5 - Hyperlipidemia, unspecified Status: Acute (3) CAD (coronary artery disease): Code(s): I25.10 - Atherosclerotic heart disease of [place] coronary artery without angina pectoris Status: Acute Assessment and Plan: Stable. (4) Paroxysmal atrial fibrillation: Code(s): I48.0 - Paroxysmal atrial fibrillation Status: Chronic Assessment and Plan: [id number] 5, high risk for cardioembolism. Continue Amiodarone. Discussed anticoagulation with patient extensively and he is willing to go on Xarelto 20 mg daily to prevent recurrence. Will need outpatient sleep study as this could be a trigger for breakthrough PAF despite Amiodarone. If he gets discharged, f/u with me in 1 week. (5) Stroke: Code(s): I63.9 - Cerebral infarction, unspecified Status: Acute Assessment and Plan: Agree with neurology consult. Subjective Date/time seen: 09/10/20 08:08 Reports his numbness resolved except in his left 5th finger. Denies palpitations, chest pain or sob. Exam Const: General: cooperative, healthy appearing and comfortable Resp: Auscultation: no crackles, no rales, no rhonchi, no wheezes and diminished lung sounds Cardio: Jugular venous distension: no JVD Rate: regular rate Rhythm: regular rhythm Heart sounds: no murmurs Peripheral pulses: dorsalis pedis present GI: Inspection: normal to inspection GI Palp: No abdominal tenderness and Yes Soft to palpation Neuro: General: oriented to person, oriented to place and oriented to time Extrem: Right lower extremity: no edema Left lower extremity: no edema Objective Data Vital Signs Vital Signs: Vital Signs - 24 hr 09/09/20 09:53 09/09/20 12:00 09/09/20 14:00 Temperature 97.1 F L Pulse Rate 70 68 82 Respiratory Rate 16 Blood Pressure 135/68 Pulse Oximetry 98 09/09/20 16:00 09/09/20 20:00 09/09/20 20:04 Temperature 97.7 F Pulse Rate 67 65 68 Respiratory Rate 18 Blood Pressure 112/44 L Pulse Oximetry 98 09/10/20 00:00 09/10/20 04:00 09/10/20 05:40 Temperature 97.2 F L Pulse Rate 56 L 52 L 56 L Respiratory Rate 17 Blood Pressure 106/48 L Pulse Oximetry 98 09/10/20 08:00 Temperature Pulse Rate 60 Respiratory Rate Blood Pressure Pulse Oximetry Intake/Output Intake/Output: Intake & Output 09/07/20 09/08/20 09/09/20 09/10/20 23:59 23:59 23:59 23:59 Intake Total 1000 1590 250 Output Total 200 400 Balance 1000 1390 -150 Meds/Results Medications: Active Medications Generic Name Dose Route Start Last Admin Trade Name Freq PRN Reason Stop Dose Admin Amiodarone HCl 200 mg 09/09/20 08:00 09/09/20 09:53 Amiodarone Hcl 200 Mg Tablet PO 200 mg DAILY@0800 MAGALY Administration Aspirin 81 mg 09/09/20 09:00 09/09/20 09:53 Aspirin 81 Mg Enteric Tablet PO 81 mg DAILY MAGALY Administration Clonazepam 1 mg 09/08/20 23:50 09/09/20 22:05 Clonazepam (*Crx) 0.5 Mg Tablet PO 1 mg HS MAGALY Administration Dextrose 12.5 gm 09/09/20 10:08 Dextrose 50% 25 Gm/50 Ml Syringe IV PUSH PRN PRN Hypoglycemia Protocol Fish Oil 1 gm 09/09/20 09:00 09/09/20 09:50 [place] 3 Polyunsat Fatty Acids 1 Gm Cap PO Not Given DAILY MAGALY Glucagon 1 mg 09/09/20 10:08 Glucagon For Inj 1 Mg Vial IM PRN PRN Hypoglycemia Protocol Glucose 15 gm 09/09/20 10:08 Glucose Oral Gel 15 Gm Of Glucse In 37.5 Gm Tube PO PRN PRN Hypoglycemia Protocol Dextrose 1,000 mls @ 100 mls/hr 09/09/20 10:08 Dextrose 5% 1,000 Ml IVPB PRN PRN Hypoglycemia Protocol Insulin Aspart 2 - 5 units 09/09/20 12:00 09/09/20 17:11 Insulin Aspart (*Bkc) 100 Units/Ml S
[2020-09-10 08:11] LABS: Glucose Point of Care 164 (65-105)
--- NOTE | 2020-09-10 10:45 | PM.DS ---
DS: Admitting Diagnosis Admitting Diagnosis Admitting Diagnosis: Numbness and tingling DS: Discharge Diagnosis Discharge Diagnosis (1) Paresthesia of left upper and lower extremity: Code(s): R20.2 - Paresthesia of skin Status: Acute Assessment and Plan: Patient presented with intermittent numbness and tingling with a history of paroxysmal atrial fibrillation not on anticoagulation. Patient was admitted into the hospital for further CVA workup. CT head and neck Was performed showing no acute intracranial abnormality. 0% stenosis to right and left internal carotid artery. MRI was completed showing punctate right thalamic acute lacunar infarct. Echo showed normal EF 60-65%, mild LVH, abnormal diastolic function. Venous Doppler bilaterally was negative for DVT. On telemetry since arrival he has remained in normal sinus rhythm with a heart rate of 71 beats per minute, mostly artifact noted on alarms. Neurology was consulted and recommended the patient continuing on aspirin therapy at this time since Xarelto will be started from cardiology standpoint for further treatment of paroxysmal atrial fibrillation. Dr. Evans Cardiology evaluated the patient and knows him well, started him on Xarelto but his insurance will not approve. Patient is now getting started on Coumadin 5 mg daily with Lovenox bridging and INR to be checked Sunday09/13/2020 and to be sent to Dr. Evans's office for further INR monitoring. Continued amiodarone for paroxysmal atrial fibrillation. Plans for him to follow-up in 1 week for further evaluation. Patient has no neurologic symptoms at this time. He is stable from medical perspective. Physical and occupational therapy state he is independent and no need for therapy. (2) Paroxysmal atrial fibrillation: Code(s): I48.0 - Paroxysmal atrial fibrillation Status: Chronic Assessment and Plan: He is in normal sinus rhythm on telemetry with no signs of atrial fibrillation at this time. Will continue his amiodarone, aspirin 81 mg and Cardiology, Dr. Evans Cardiology will start Coumadin with Lovenox Bridging to prevent further strokes TSH normal. (3) Insulin dependent diabetes mellitus: Code(s): E11.9 - Type 2 diabetes mellitus without complications; Z79.4 - residential (current) use of insulin Status: Acute Assessment and Plan: Patient is a chronic diabetic on long-term insulin therapy with sliding scale with meals. Hemoglobin A1c is 10.5%. Educated him on better glucose management, diet and following up with his primary care provider for further evaluation. (4) Dyslipidemia: Code(s): E78.5 - Hyperlipidemia, unspecified Status: Acute Assessment and Plan: Continue with Crestor. (5) Peripheral sensory neuropathy due to type 2 diabetes mellitus: Code(s): E11.42 - Type 2 diabetes mellitus with diabetic polyneuropathy Status: Acute Assessment and Plan: Continue with ropinirole (6) Anxiety: Code(s): F41.9 - Anxiety disorder, unspecified Status: Chronic Assessment and Plan: Continue with Klonopin DS: Summary Hospital Course Hospital Course: Patient is a 59-year-old man With a history of diabetes with neuropathy, paroxysmal atrial fibrillation on amiodarone and no anticoagulation other than aspirin 81 mg daily, who presented to the emergency department with several days of numbness and tingling to his left lip, left arm and left leg. He was advised to come to the ER for further evaluation and rule out of acute stroke. Initial vital signs showed he was afebrile, normal heart rate at 79, respiratory rate, blood pressure 136/71, oxygen saturation
[2020-09-10 11:32] LABS: Glucose Point of Care 268 (65-105)
== END 2020-09-10 13:18 | disposition home or self-care (01) | DRG 45 ==
LOC: ANHED 17:17 → ANH3MED 21:04
PROVIDERS: Nurse Practitioner; Physician Assistant; Admitting Provider Internal Medicine; Emergency Provider General Practice; PCP Physician Assistant; Visit Provider Internal Medicine
DX: I63.81 Other cerebral infarction due to occlusion or stenosis of small artery (principal); R29.703 NIHSS score 3; I48.0 Paroxysmal atrial fibrillation; E11.42 Type 2 diabetes mellitus with diabetic polyneuropathy; E11.65 Type 2 diabetes mellitus with hyperglycemia; I25.10 Atherosclerotic heart disease of native coronary artery without angina pectoris; F41.9 Anxiety disorder, unspecified; E78.5 Hyperlipidemia, unspecified; N40.0 Benign prostatic hyperplasia without lower urinary tract symptoms; I25.2 Old myocardial infarction; Z28.21 Immunization not carried out because of patient refusal; Z79.4 Long term (current) use of insulin; Z79.82 Long term (current) use of aspirin; Z87.891 Personal history of nicotine dependence; Z95.5 Presence of coronary angioplasty implant and graft
CPT/HCPCS: 36415; 70496; 70498; 70553; 71045; 80048; 80053; 80061; 82728; 82948; 83036; 83735; 84443; 84484; 85025; 85610; 85730; 93005; 93306; 93970; 96360; 96361; 96375; 97161; 97165; 99285; A9270; A9577; C8929; G0378; G0379; J1815; J7030; Q9967

== ENCOUNTER 2020-09-13 12:46 | Outpatient (CLI) | payer OTHER, SELFPAY ==
[2020-09-13 13:22] LABS: INR 1.3; Prothrombin Time 16.8 Seconds (11.1-14.7)
== END 2020-09-13 12:47 | disposition home or self-care (01) ==
PROVIDERS: PCP Physician Assistant; Referring Provider Internal Medicine Cardiovascular Disease; Visit Provider Physician Assistant
DX: I48.91 Unspecified atrial fibrillation (principal)
CPT/HCPCS: 36415; 85610

== ENCOUNTER 2020-09-17 09:58 | Outpatient (CLI) | payer OTHER, SELFPAY ==
[2020-09-17 10:25] LABS: INR 1.6; Prothrombin Time 19.3 Seconds (11.1-14.7)
== END 2020-09-17 09:59 | disposition home or self-care (01) ==
PROVIDERS: PCP Physician Assistant; Visit Provider Internal Medicine Cardiovascular Disease
DX: I48.0 Paroxysmal atrial fibrillation (principal)
CPT/HCPCS: 36415; 85610

== ENCOUNTER 2020-09-24 10:24 | Outpatient (RCR) | payer OTHER, SELFPAY ==
[2020-09-24 11:26] LABS: INR 3.6; Prothrombin Time 36.2 Seconds (11.1-14.7)
== END 2020-12-23 23:59 | disposition home or self-care (01) ==
LOC: ANHLAB 10:24
PROVIDERS: PCP Physician Assistant; Visit Provider Internal Medicine Cardiovascular Disease
DX: I48.0 Paroxysmal atrial fibrillation (principal)
CPT/HCPCS: 36415; 85610

== ENCOUNTER → 2020-09-25 00:37 | Outpatient (CLI) | payer OTHER, SELFPAY ==
[2020-09-25 20:39] LABS: SARS-CoV-2 RNA PCR Negative
== END ==
PROVIDERS: PCP Physician Assistant; Visit Provider Internal Medicine Critical Care Medicine
DX: Z01.812 Encounter for preprocedural laboratory examination (principal); Z20.822 Contact with and (suspected) exposure to COVID-19
CPT/HCPCS: C9803; U0003; U0005

== ENCOUNTER 2020-09-28 08:30 | Outpatient (CLI) | payer OTHER, SELFPAY ==
--- NOTE | 2020-10-18 14:11 | WPDSLEEPSTUD ---
Sleep Study Date of Study: 09/28/20 Ordering Provider: Justo Evans DO Interpreting Physician: Suzy Medina MD Sleep Study Type: Split Polysomnogram Height: 1.83 m Weight: 68.039 kg Body Mass Index: 20.3 [place]: 6 Reason for Sleep Study History of atrial fibrillation, insomnia, loud snoring, falls asleep involuntarily Sleep History Ten Barroso is a 60-year-old man with atrial fibrillation. He has a difficult time falling asleep, uses trazodone regularly to get to sleep. He always has excessive daytime sleepiness. There is a family history of sleep disorders with his sister using CPAP. He constantly snores and is constantly loud enough that others complain about it. He does not awaken at night with heartburn, belching or coughing. He does not awaken from sleep feeling short of breath. He occasionally has trouble sleep with a cold and occasionally wakes up gasping for breath at night. He does not have breathing problems witnessed by others. He does not sweat excessively at night. He frequently notices his heart pounding or beating irregularly at night, frequently falls asleep during the day and frequently falls asleep involuntarily however he never falls asleep while driving. he does not fall asleep while exerting physical effort. He does not have loss of muscle tone was strong emotion. He does not have difficulty during the day due to sleepiness, he is disabled. He has a does not feel paralyzed on waking or falling asleep. He occasionally has vivid dreamlike scenes upon awakening or falling asleep. He occasionally has nightmares. He rarely remembers his dreams. He frequently has racing thoughts. He does not feel sad or depressed. He constantly has anxiety and worries about things. He does not have muscular tension. He constantly notices parts of his body jerking and constantly kicks at night. He does not have crawling and aching feelings in his legs and does not have any kind of leg pain at night. He does not have morning jaw pain. He does not grind his teeth during sleep. He is not bothered by pain during the day, at night, does not wake up with stiffness in the morning, sore muscles or spine pain. He has insomnia and cannot fall asleep without his trazodone. He has nightmares, palpitations, occasional morning headaches and panic. He never awakens feeling refreshed. Normal bedtime is 11:00 p.m. taking an hour to fall asleep even using trazodone, waking up several times to urinate. He wakes in the morning at 9:00 a.m.. He estimates getting 6-8 hours of sleep at night. His weekend schedule is the same. He takes naps in the afternoon or evening. A short nap may be refreshing. He is drowsy in the morning for 2 hours or longer. He feels better in the afternoon compared to the morning. [facility] Past Medical History Medical History Aftercare following surgery of the musculoskeletal system Anxiety Benign prostatic hyperplasia Coronary artery disease History of MO and stent in 2015. Depression Hammertoe of right foot History of anemia History of kidney stones History of MRSA infection History of rectal polyps Benign. History of shingles Insulin dependent diabetes mellitus The with peripheral neuropathy. Hemoglobin A1c was 8.9 in January 2019. Osteoarthritis Osteomyelitis of toe of right foot Paroxysmal atrial fibrillation Peripheral sensory neuropathy due to type 2 diabetes mellitus Tobacco dependence Surgical History Surgical History H/O foot surgery 10/28/2019 percutaneous flexor tenotomy of the right 2nd 4th 5th toes History of cardiac catheterization With stent x1 in 2015. History of transurethral resection of prostate Status post amputation of right great toe Status post ORIF of fracture of ankle Right ankle. Family History Family History Mother Lymphom
[2020-10-18 14:43] VITALS: BMI 20.3
== END 2020-09-28 08:31 | disposition home or self-care (01) ==
LOC: ANHCSM 08:30
PROVIDERS: PCP Physician Assistant; Visit Provider Internal Medicine Cardiovascular Disease
DX: G47.10 Hypersomnia, unspecified (principal); Z79.4 Long term (current) use of insulin; Z79.01 Long term (current) use of anticoagulants; Z79.82 Long term (current) use of aspirin; G47.33 Obstructive sleep apnea (adult) (pediatric)
CPT/HCPCS: 95811

== ENCOUNTER 2020-12-12 20:28 | Emergency (ER) | payer OTHER, SELFPAY ==
--- NOTE | ~2020-12-12 | XR_ITS ---
XR ankle LT min 3V, XR foot LT min 3V 12/12/2020 21:24 (accession [id number]), 12/12/2020 21:25 (accession [id number]) Indication: Left ankle and foot pain and swelling Procedure: 4 views left ankle and 4 views left foot Comparison: No prior studies for comparison. Findings: There is an avulsion fracture distal tip of the fibula. Moderate lateral soft tissue swelli ng at the ankle. Ankle mortise intact. Lisfranc joint intact. Osteopenia. No foreign bodies. Impression: 1: Avulsion fracture distal tip of the fibula. Reviewed, dictated and finalized at location A. Impression: 1: Avulsion fracture distal tip of the fibula. Impression: 1: Avulsion fracture distal tip of the fibula.
[2020-12-12 20:43] VITALS: BP 118/57; PULSE 71; RESP 16; TEMP 36.4; O2SAT 95
[2020-12-12 21:35] LABS: Basophils Percent Auto 0.3 % (0.2-1.2); Eosinophils Absolute Auto 0.2 K/mm3 (0-0.3); Eosinophils Percent Auto 2.2 % (0-4.4); Hematocrit 37.5 % (42.0-52.0); Immature Granulocyte Absolute 0.05 K/mm3 (0.00-0.031); Immature Granulocyte Percent A 0.6 % (0-0.5); Lymphocytes Absolute Auto 1.71 K/mm3 (0.9-3.2); Lymphocytes Percent Auto 19.5 % (18.3-44.2); Mean Corpuscular Hemoglobin 30.3 pg (26-34); Mean Corpuscular Volume 94.7 fl (80-100); Mean Platelet Volume 9.3 fl (7.4-10.4); Monocytes Percent Auto 11.3 % (2.6-8.5); Neutrophils Absolute Auto 5.8 K/mm3 (1.3-6.7); Neutrophils Percent Auto 66.1 % (45.5-73.1); Platelet Count Result 257 k/mm3 (150-375); Red Blood Count 3.96 M/mm3 (4.6-6.20); White Blood Count 8.8 K/mm3 (4.5-10.0)
[2020-12-12 21:45] LABS: Alanine Aminotransferase 13 U/L (4-50); Albumin Level 3.9 g/dL (3.5-5.1); Alkaline Phosphatase 63 U/L (38-126); Anion Gap 2 mmol/L (8-16); Aspartate Amino Transferase 21 U/L (17-59); Bilirubin,Total 0.2 mg/dL (0.2-1.3); Blood Urea Nitrogen 26 mg/dL (9-20); Calcium 8.9 mg/dL (8.4-10.2); Carbon Dioxide 32 mmol/L (22-30); Chloride 104 mmol/L (98-107); Estimated CRCL calculation 49 ml/min; Estimated Glomerular Filt Rate 52; Glucose 204 mg/dL (75-110); INR 2.4; Potassium 4.1 mmol/L (3.4-5.0); Prothrombin Time 27.1 Seconds (11.1-14.7); Sodium 138 mmol/L (137-145)
[2020-12-12 21:46] LABS: Partial Thromboplastin Time 50.8 SECONDS (22.3-36.8)
[2020-12-12 21:48] VITALS: BP 120/74; PULSE 70; RESP 18; O2SAT 99
--- NOTE | 2020-12-12 22:53 | ED.GENADULT ---
HPI - General Adult General Chief complaint: Extremity Injury, Lower Stated complaint: left leg swollen and bruised Time Seen by Provider: 12/12/20 21:01 History of Present Illness HPI narrative: Patient is a 60-year-old gentleman who presents the emerge department with chief complaint of left ankle and foot pain and swelling patient reports that he has history of peripheral neuropathy and also is on anticoagulants. The patient states he noticed that he started bruising in his left ankle and left foot initially felt a little different and was concerned that he may have a blood clot in his leg. The patient reports he is on anticoagulants and has been compliant with his Coumadin. The patient is unsure if he has had any falls but does kind of twisted his ankle sometimes whenever he walks. Related Data Home Medications Medication Instructions Recorded Confirmed Basaglar KwikPen U-100 Insulin 30 unit SUBCUT BID 06/17/19 09/17/20 aspirin [Adult Low Dose Aspirin] 81 mg PO DAILY 06/17/19 09/17/20 insulin lispro [Humalog U-100 12 unit SUBCUT TIDWM 06/17/19 09/17/20 Insulin] trazodone 150 mg PO HS 06/17/19 09/17/20 ropinirole 0.25 mg PO HS 07/21/19 09/17/20 rosuvastatin 20 mg PO DAILY 07/21/19 09/17/20 clonazepam 0.5 mg tablet 1 mg PO HS 01/15/20 09/17/20 omega 3-xvx-zfm-fish oil 1,000 mg 1 cap PO DAILY 01/15/20 09/17/20 (120 mg-180 mg) capsule omeprazole 20 mg capsule,delayed 20 mg PO DAILY 01/15/20 09/17/20 release Allergies Allergy/AdvReac Type Severity Reaction Status Date / Time salmon oil Allergy Intermediate Swelling Verified 09/17/20 09:30 lisinopril Allergy Unknown lowers BP Verified 09/17/20 09:30 too much meperidine Allergy Unknown Unknown Verified 09/17/20 09:30 sulfamethoxazole AdvReac Severe light Verified 09/17/20 09:30 [From Bactrim] headed, vomiting severe trimethoprim [From Bactrim] AdvReac Severe light Verified 09/17/20 09:30 headed, vomiting severe Review of Systems Review of Systems: Narrative: A 10 system review of systems was completed on the patient and is negative except for what is stated in the HPI. Nursing and ancillary documentation was reviewed. [facility] Past Medical History Medical History Aftercare following surgery of the musculoskeletal system Anxiety Benign prostatic hyperplasia Coronary artery disease History of MT and stent in 2016. Depression Hammertoe of right foot History of anemia History of kidney stones History of MRSA infection History of rectal polyps Benign. History of shingles Insulin dependent diabetes mellitus The with peripheral neuropathy. Hemoglobin A1c was 8.9 in January 2019. Osteoarthritis Osteomyelitis of toe of right foot Paroxysmal atrial fibrillation Peripheral sensory neuropathy due to type 2 diabetes mellitus Tobacco dependence Surgical History Surgical History H/O foot surgery 10/28/2019 percutaneous flexor tenotomy of the right 2nd 4th 5th toes History of cardiac catheterization With stent x1 in 2015. History of transurethral resection of prostate Status post amputation of right great toe Status post ORIF of fracture of ankle Right ankle. Family History Family History Mother Lymphoma Father Kidney disease Other Cancer Diabetes mellitus Family history of cardiovascular disease Social History Social History Social History: Mr. Barroso lives in [place]. 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 He moved to the area June 2018 from [place]. He smokes 1 pack of cigarettes per day and has since his teenage years. He admits to marijuana use. He drinks alcohol socially and in moderation. He designates h
[2020-12-12 23:46] VITALS: BP 124/82; PULSE 80; RESP 18; O2SAT 99
[2020-12-13 00:09] VITALS: BP 129/80; PULSE 86; RESP 18; O2SAT 99
== END 2020-12-13 00:11 | disposition home or self-care (01) ==
PROVIDERS: Emergency Provider Emergency Medicine; PCP Physician Assistant
DX: S82.832A Other fracture of upper and lower end of left fibula, initial encounter for closed fracture (principal); I25.10 Atherosclerotic heart disease of native coronary artery without angina pectoris; N40.0 Benign prostatic hyperplasia without lower urinary tract symptoms; E11.42 Type 2 diabetes mellitus with diabetic polyneuropathy; I48.0 Paroxysmal atrial fibrillation; I25.2 Old myocardial infarction; F41.9 Anxiety disorder, unspecified; F32.9 Major depressive disorder, single episode, unspecified; M19.90 Unspecified osteoarthritis, unspecified site; Z87.442 Personal history of urinary calculi; Z86.14 Personal history of Methicillin resistant Staphylococcus aureus infection; Z87.19 Personal history of other diseases of the digestive system; D64.9 Anemia, unspecified; Z79.82 Long term (current) use of aspirin; Z79.4 Long term (current) use of insulin; Z95.5 Presence of coronary angioplasty implant and graft; Z90.79 Acquired absence of other genital organ(s); F17.210 Nicotine dependence, cigarettes, uncomplicated; Z89.411 Acquired absence of right great toe; Z79.01 Long term (current) use of anticoagulants; X58.XXXA Exposure to other specified factors, initial encounter
CPT/HCPCS: 29515; 36415; 73610; 73630; 80053; 85025; 85610; 85730; 99284

== ENCOUNTER 2021-01-10 12:35 | Emergency (ER) | payer OTHER, SELFPAY ==
[2021-01-10 12:43] VITALS: BP 158/77; PULSE 76; RESP 12; TEMP 37; O2SAT 98
--- NOTE | 2021-01-10 13:17 | ED.GENADULT ---
HPI - General Adult General Chief complaint: Skin/Abscess/Foreign Body Stated complaint: Skin Complaint Time Seen by Provider: 01/10/21 13:18 Source: patient and RN notes reviewed Mode of arrival: ambulatory Limitations: no limitations History of Present Illness HPI narrative: 60-year-old male presents with complaints of redness, warmth, and tenderness to right leg for 1 day. Ten reports increasing symptoms throughout the day. No treatment. Radiation of tenderness, redness, or swelling. Unknown exacerbating factors. Denies open areas or drainage. Denies fever or chills. Denies nausea, vomiting, and abdominal pain. Tolerating po intake well. Remains active. The patient reports he have not been diagnosed with COVID-19. The patient reports he received 2 [employer] COVID-19 vaccines. The patient reports he is not waiting for the results of a COVID-19 lab test. The patient reports he do not have weakness or fatigue. The patient reports he do not have a new or worsening cough or shortness of breath. Denies chest pain. The patient reports he do not have any rhinorrhea, congestion, loss of taste or smell, sore throat, and diarrhea. Denies recent traveling. Denies concerns for COVID-19 or exposures. At this time, patient is not suspected of having COVID-19. Some parts of this dictation were generated by voice recognition software and may contain typographical and/or grammatical inaccuracies. Related Data Home Medications Medication Instructions Recorded Confirmed Basaglar KwikPen U-100 Insulin 30 unit SUBCUT BID 06/17/19 12/30/20 insulin lispro [Humalog U-100 12 unit SUBCUT TIDWM 06/17/19 12/30/20 Insulin] ropinirole 0.25 mg PO HS 07/21/19 12/30/20 clonazepam 0.5 mg tablet 1 mg PO HS 01/15/20 12/30/20 omeprazole 20 mg capsule,delayed 20 mg PO DAILY 01/15/20 12/30/20 release fluoxetine mg 01/10/21 fluticasone propionate INTRANASAL 01/10/21 gabapentin 01/10/21 rosuvastatin mg 01/10/21 01/10/21 Allergies Allergy/AdvReac Type Severity Reaction Status Date / Time salmon oil Allergy Intermediate Swelling Verified 01/10/21 12:58 lisinopril Allergy Unknown lowers BP Verified 01/10/21 12:58 too much meperidine Allergy Unknown Unknown Verified 01/10/21 12:58 sulfamethoxazole AdvReac Severe light Verified 01/10/21 12:58 [From Bactrim] headed, vomiting severe trimethoprim [From Bactrim] AdvReac Severe light Verified 01/10/21 12:58 headed, vomiting severe Review of Systems Review of Systems: Narrative: CONSTITUTIONAL: Denies fever, chills, sweats. EYES: Denies visual changes, redness, discharge. ENT: Denies rhinorrhea, congestion, sore throat, otalgia. CARDIOVASCULAR: Denies chest pain, palpitations, edema. RESPIRATORY: Denies dyspnea, wheezing, cough. GASTROINTESTINAL: Denies abdominal pain, nausea, vomiting, diarrhea. SKIN: Complains of redness, warmth, and tenderness to right leg. MUSCULOSKELETAL: Denies acute back pain, joint pain, or myalgia. NEUROLOGIC: Denies numbness or focal weakness. PSYCHIATRIC: Denies anxiety or depression. All systems reviewed & are unremarkable except as noted in HPI and below. [facility] Past Medical History Medical History A-fib Abnormality of heart beat Aftercare following surgery of the musculoskeletal system Anemia Anxiety Avulsion fracture of ankle Benign prostatic hyperplasia Clotting disorder Constipation Coronary artery disease History of [place] and stent in 2016. Depression Diabetes Dizziness Hammertoe of right foot Heart attack History of anemia History of kidney stones History of MRSA infection History of rectal polyps Benign. History of shingles Insulin dependent diabetes mellitus The with peripheral neuropathy. Hemoglobin A1c was 8.9 in January 2019. Light headedness Memory loss Osteoarthritis Osteomyelitis of toe of right foot Paroxysmal atrial fibrillation Periphera
== END 2021-01-10 13:50 | disposition home or self-care (01) ==
PROVIDERS: Emergency Provider Nurse Practitioner Family; PCP Physician Assistant
DX: L03.115 Cellulitis of right lower limb (principal); F17.210 Nicotine dependence, cigarettes, uncomplicated; I48.91 Unspecified atrial fibrillation; F41.9 Anxiety disorder, unspecified; N40.0 Benign prostatic hyperplasia without lower urinary tract symptoms; I25.10 Atherosclerotic heart disease of native coronary artery without angina pectoris; I25.2 Old myocardial infarction; Z95.5 Presence of coronary angioplasty implant and graft; Z86.14 Personal history of Methicillin resistant Staphylococcus aureus infection; E11.42 Type 2 diabetes mellitus with diabetic polyneuropathy; Z79.4 Long term (current) use of insulin; M19.90 Unspecified osteoarthritis, unspecified site
CPT/HCPCS: 99213; G0463

== ENCOUNTER → 2021-01-21 22:34 | Emergency (ER) | payer OTHER, SELFPAY ==
--- NOTE | 2021-01-21 22:36 | PC.NURSE ---
Pt. in to triage. Pt. frustrated with RN for asking what his birthday was. Pt. shouted yes at RN with attitude when RN confirmed pt. last name. RN asked pt. to put a mask on. pt. States no way I am wearing a fucking mask. I can't breathe. Take me to [place]. Pt. support person has pt. put a mask on. pt. then states he is dying and needs to be seen. RN asking pt. screening questions. pt. states I had the fucking shots so I don't have fucking covid. Take me to [place], fuck this shit. Get me a new nurse. RN asked pt. if he would like to be seen since he repeatedly is stating he wants to go to [place]. Pt. then states well not when you ask. Pt support person wheeling pt. out of triage and pt. states what is your name? I am using it tomorrow. Pt. left triage NAD. Vitals were not obtained.
== END | disposition left against medical advice (07) ==
LOC: ANHED 23:04
PROVIDERS: PCP Physician Assistant
DX: Z53.21 Procedure and treatment not carried out due to patient leaving prior to being seen by health care provider (principal)
CPT/HCPCS: 99199

== ENCOUNTER 2021-02-25 09:33 | Outpatient (CLI) | payer OTHER, SELFPAY ==
--- NOTE | ~2021-02-25 | DEXA_ITS ---
Bone Density Report Name: Ten Barroso Age: 60 Sex: Male Ethnicity: White Date of : 1960 Indication: prior fracture; osteopenia Referring Provider: NolbertoCrispin, Katya Study: Bone densitometry was performed. Exam Date: February 25, 2021 Accession number: [id number] Bone Density: Region BMD T-score Z-score Classification AP Spine (L1, L2) 0.843 -1.9 -1.3 Osteopenia Femoral Neck (Left) 0.562 -2.7 -1.8 Osteoporosis Total Hip (Left) 0.770 -1.7 -1.3 Osteopenia Total Hip Bilateral Avg 0.737 -2.0 -1.5 Osteopenia Femoral Neck (Right) 0.569 -2.7 -1.7 Osteoporosis Total Hip (Right) 0.703 -2.2 -1.7 Osteopenia World Health Organization criteria for BMD impression classify patients as: Normal (T-score at or above -1.0), Osteopenia (T-score between -1.0 and -2.5), or Osteoporosis (T-score at or below -2.5). 10-year Fracture Risk: FRAX not reported because: Some T-score for Spine Total or Hip Total or Femoral Neck at or below -2.5 Clinical Information Provided by Patient: Has had a low trauma fracture Smokes Has used the following medications: Vitamin D Patient maximum height was 72 Does not regularly consume dairy products Drinks caffeinated beverages Impression: The patient has established osteoporosis, based on the Left Femoral Neck T-score and the existence of a prior fracture. The patient has risk factors, including: smoking, previous fracture. Discussion: HIGH RISK OF FRACTURE. BONE DENSITY IS UNDESIRABLY LOW AT ONE OR MORE SKELETAL SITES, CONSISTENT WITH OSTEOPOROSIS. This patient's lowest T-score, in a patient who has previously fractured, meets the World Health Organization's (WHO) criteria for severe osteoporosis. In untreated patients, the risk of osteoporotic fracture increases approximately two-fold for each 1.0 SD decrease in T-score. Low bone density is not the only risk factor for fracture; also consider factors such as patient's age, frailty or poor health, risk of falling, risk of injury, previous osteoporotic fracture, family history of osteoporosis, cigarette smoking, low body weight, etc. Not everyone with low bone mineral density has osteoporosis; osteomalacia and other metabolic bone disorders should also be considered. Patients who have osteoporosis should be evaluated for specific diseases and conditions (secondary causes) that may cause or contribute to bone loss. The National Osteoporosis Foundation (NOF) recommends pharmacologic intervention for men with BMD at this level (a T-score of -2.5 or below). The patient should follow a healthful lifestyle (good nutrition with adequate calcium and vitamin D, and appropriate weight-bearing exercise). Follow-Up: Consider repeating this study in 2 years to reassess this patient's status, or sooner if there is some new clinical indication. Reported by: [facility]
== END 2021-02-25 09:34 | disposition home or self-care (01) ==
LOC: ANHIMG 09:35
PROVIDERS: PCP Physician Assistant; Visit Provider Physician Assistant
DX: M85.89 Other specified disorders of bone density and structure, multiple sites (principal); M81.0 Age-related osteoporosis without current pathological fracture
CPT/HCPCS: 77080

== ENCOUNTER 2021-03-22 09:30 | Outpatient (RCR) | payer OTHER, SELFPAY ==
--- NOTE | 2021-02-15 09:00 | PTOPEVAL ---
PHYSICAL THERAPY EVALUATION AND PLAN OF CARE 02-15-21 Thank you for referring Ten Barroso to [facility] for the diagnosis of B LE neuropathy and decreased walking ability. Cresencio is scheduled to be seen for therapy? 2 x/week for 4 weeks. Please review, sign, date and return this plan of care TOI. I agree with and certify that the following plan of care is medically necessary. Referring Physician Date Attending Provider: Mariam Arvizu, IVORY PT Outpatient Evaluation Document 02/15/21 08:00 LI (Rec: 02/15/21 09:00 LI [id number]) Outpatient Past Medical History Past Medical History Source of Past Medical History Recalled from Previous Visit, Confirmed with Patient/Family Neurological History Hx Cerebrovascular Accident (CVA) Yes: November 2020--L side weakness, Hx Other Neurological Disorders Yes: neuropathy in feet Cardiovascular History Hx Atrial Fibrillation Yes Hx Cardiac Arrhythmia Yes: SVT Hx Cardiac Catheterization Yes Hx Chest Pain Yes Hx Coronary Stent Yes: 2005 Hx Hypertension Yes: take meds Hx Myocardial Infarction Yes Hx Palpitations Yes Respiratory History Hx Respiratory Disorders No Significant History Gastrointestinal History Hx Gastroesophageal Reflux Disease Yes Hx Polyps Yes: x7 removed Genitourinary History Hx Benign Prostatic Hyperplasia Yes Hx Kidney Stones Yes Hx Transurethral Resection Yes: 2019 Hx Other Genitourinary Disorders Yes: to have laser surgery for prostate- not scheduled yet Musculoskeletal History Hx Amputation Yes: Right 1st toe Hx Arthritis Yes: R ankle Hx Back Pain Yes Hx Orthopedic Surgery Yes: ORIF right ankle 92'; B hammer toe surgery Hx Other Musculoskeletal Disorders Yes: L tibia fracture- casted; to have bone density test next week Hematological History Hx Hematological Disorders No Significant History Endocrine History Hx Diabetes Yes: problems controlling blood sugars/monitor closely HEENT History Hx Deviated Septum Yes Integumentary History Hx Cellulitis Yes: R LE Hx Shingles Yes Reproductive History Hx Reproductive Disorders No Significant History Psychosocial History Hx Anxiety Yes Hx Depression Yes Hx Post Traumatic Stress Disorder Yes Hx Other Psychiatric Disorders Yes: trichotillomania Pain History History of Any Previous or Ongoing No Significant History Instance of Pain Anesthesia Histo
--- NOTE | 2021-03-09 08:31 | PCPTNOTE ---
Patient called & rescheduled his appointment this date due to having a Dr's appointment.
--- NOTE | 2021-03-15 12:03 | PCPTNOTE ---
pt called and canceled today's reeval due to family emergency rescheduled for next week.
--- NOTE | 2021-03-22 10:14 | PTOPEVAL ---
PHYSICAL THERAPY DISCHARGE 03-22-21 Refer to the clinical summary below, for his status today, compared to the initial evaluation. The goals were partially achieved. Discharge PT. He is to continue with his home exercise program and continue to increase his activity level as tolerated. Thank you for referring Ten Barroso to [facility].? Please review, sign, date and return this Discharge TOI. I agree with and certify that the following plan of care is medically necessary. Referring Physician Date Attending Provider: IVORY Akhtar Document 03/22/21 09:20 LI (Rec: 03/22/21 10:09 LI [id number]) Assessment Status Discharge Subjective Information Don reports: had one mishap-- Query Text:As Reported By Patient/ lost balance when approaching Family to go down the stairs and trunk landed into the railing; doing leg exercises; in home, do not use the cane, but use when go out; feel better with the cane, not as unbalanced; have been going to the fitness center-riding bike and doing leg weights; when fatigued, tend to drag feet more and know to stop and rest; agree to discharge from PT services; Pain Assessment Timing of Pain Assessment Timing of Pain Assessment Assessment Pain Scale Pain Scale Used Numeric (1 - 10) Self Report Pain Assessment Right Ribs Reported Pain Level 5 Pain Description Aching,Dull Pain Frequency Acute,Continuous Pain Score Pain Score 5: Self Report Additional Pain Score Comments pain R trunk from crashing into railing of stairs Interventions Used Interventions Used By Clinicians Education Lower Extremity Muscle Strength Testing General Lower Extremity Strength Gross Lower Extremity Strength single leg standing R 2 sec/ L 3 sec- without UE support; with 1 UE hold R & L, 30 seconds with cues for trunk upright posture; standing B PF with 1 UE hold x 25 reps; Balance Comment stand:B UE with ball: rotate trunk R/L & lift ball overhead /trunk ext x5 reps without loss of balance Tinetti Balance Assessment Sitting Balance Steady, safe Ability to Arise Able, w/o using arms Attempts to Arise Arises on 1st attempt Immediate Standing Balance
== END 2021-05-02 13:06 | disposition home or self-care (01) ==
LOC: ANHPT 09:30
PROVIDERS: PCP Physician Assistant; Visit Provider Physician Assistant
DX: E11.40 Type 2 diabetes mellitus with diabetic neuropathy, unspecified (principal)
CPT/HCPCS: 97110; 97161; 97530

== ENCOUNTER 2021-06-09 07:57 | Outpatient (CLI) | payer MEDICARE, MEDICAID, SELFPAY ==
--- NOTE | ~2021-06-09 | NM_ITS ---
EXAMINATION: NM mila stress w perfusion DATE: 06/09/2021 10:11 INDICATION: Chest pain TECHNIQUE: Rest images were obtained following intravenous administration of 10.65 mCi Tc99m tetrofos min (MyoReflektion). The patient was infused intravenously with Lexiscan (Regadenoson). Then, 31.39 mCi Tc9 9m tetrofosmin (Myoview) was administered intravenously, and stress images were obtained. Data was re constructed into short axis and horizontal and vertical long axis SPECT images. Gated SPECT images we re also obtained. COMPARISON: None. FINDINGS: Mild fixed perfusion defect involving the apical septal and mid inferior septal segments co nsistent with infarct. No reversible perfusion defects to suggest ischemia. There is normal left deena tricular chamber size, wall motion and ejection fraction. Left ventricular ejection fraction measure s 70%. IMPRESSION: 1. Small mild fixed perfusion defect consistent with infarct at the mid inferior septal and apical se ptal segments. 2. Left ventricular ejection fraction measuring 70%. Reviewed, dictated and finalized at location A. IMPRESSION: 1. Small mild fixed perfusion defect consistent with infarct at the mid inferio r septal and apical septal segments. 2. Left ventricular ejection fraction measuring 70%.
--- NOTE | 2021-06-09 08:20 | EST_ITS ---
Patient Info Name: Ten Barroso Age: 60 years : 1960 Gender: Male Ht: 72 in Wt: 120 lbs BSA: 1.64 m2 HR: 68 bpm BP: 131 / 75 mmHg Heart Rhythm: Sinus Rhythm Exam Date: 06/09/2021 9:11 AM Exam Location: [facility] Stress Patient Status: Outpatient Admit Date: 06/09/2021 Staff Ordering Physician: Justo Evans DO Attending Provider: Justo Evans DO Exercise Technologist: Azul Lemon CT Exercise Physician: Justo Evans DO Exam Type: CA stress mila w NM Study Info Indications R07.9 - Chest pain, unspecified A regadenoson stress test was performed. Summary 1. 1. Negative lexiscan stress test for ischemic ST changes by ECG criteria. 2. 2. Stable hemodynamics throughout the test. 3. 3. Nuclear scan to follow and will be reported separately. Please correlate with it. 4. 4. Patient informed of the above results. Protocol: Lexiscan Stress ECG Details Stage: REST Duration (min): 1 min : 6 sec HR (bpm): 69 SBP (mmHg): 131 DBP (mmHg): 75 Stage: REST Duration (min): 9 min : 11 sec HR (bpm): 67 SBP (mmHg): 131 DBP (mmHg): 75 Stage: STAGE 1 Duration (min): 0 min : 59 sec HR (bpm): 73 SBP (mmHg): 133 DBP (mmHg): 65 Stage: RECOVERY Duration (min): 1 min : 0 sec HR (bpm): 75 SBP (mmHg): 133 DBP (mmHg): 65 Stage: RECOVERY Duration (min): 2 min : 0 sec HR (bpm): 73 SBP (mmHg): 133 DBP (mmHg): 65 Stage: RECOVERY Duration (min): 2 min : 52 sec HR (bpm): 72 SBP (mmHg): 137 DBP (mmHg): 68 Rest HR: 67 bpm Peak HR: 78 bpm Rest Sys BP: 131 mmHg Peak Sys BP: 137 mmHg Max Pred HR: 160 bpm % Max Pred HR: 49 % Target HR: 136 bpm Max RPP: 10,686 bpm*mmHg Termination Reason: Completed protocol Cardiac Symptoms: Shortness of breath Total Time: 1 min : 0 sec Rest Dominguez BP: 75 mmHg Peak Dominguez BP: 68 mmHg Total Dose: 0.4 mg Resting ECG Sinus rhythm. Stress ECG No ST changes. Arrhythmias None. Report Signatures
== END 2021-06-09 07:58 | disposition home or self-care (01) ==
LOC: ANHCARD 07:59
PROVIDERS: PCP Physician Assistant; Visit Provider Internal Medicine Cardiovascular Disease
DX: R07.9 Chest pain, unspecified (principal); R94.39 Abnormal result of other cardiovascular function study
CPT/HCPCS: 78452; 93017; A9502; J2785